=== PATIENT | male | born 1940 | race Caucasian/White ===

== ENCOUNTER 2017-10-31 19:38 | Inpatient (IN) | payer MEDICARE ==
[2017-10-31] MEDS ORDERED: SODIUM CHLORIDE 0.9% 1,000 ML IV STA (20:07)
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
[2017-10-31 20:51] LABS: Basophils % (A) 1 %; Eosinophils # (A) 0.2 k/uL (0-0.7); Eosinophils % (A) 3 %; HCT 38.6 % (39.0-53.0); HGB 13.3 gm/dL (13.0-17.5); Lymphocytes # (A) 2.3 k/uL (1.0-4.8); Lymphocytes % (A) 42 %; MCH 31.7 pg (25.0-35.0); MCHC 34.3 g/dL (31.0-37.0); MCV 92.4 fL (80.0-100.0); Mean Platelet Volume 9.9; Monocytes # (A) 0.4 k/uL (0-1.0); Monocytes % (A) 8 %; Neutrophils # (A) 2.4 k/uL (1.3-7.7); Neutrophils % (A) 44 %; Platelet Count 127 k/uL (150-450); RBC 4.18 m/uL (4.30-5.90); RDW 12.9 % (11.5-15.5); WBC 5.4 k/uL (3.8-10.6)
[2017-10-31 21:02] LABS: Albumin 3.8 g/dL (3.5-5.0); Calcium 10.1 mg/dL (8.4-10.2); Total Bilirubin 0.7 mg/dL (0.2-1.3); Total Protein 6.8 g/dL (6.3-8.2)
[2017-10-31 21:07] LABS: Partial Thromboplastin Time 22.1 sec (22.0-30.0); Prothrombin Time 10.1 sec (9.0-12.0)
[2017-10-31 21:10] LABS: D-Dimer 1.07 mg/L FEU (<0.60)
[2017-10-31 21:16] LABS: Creatine Kinase 75 U/L (55-170)
[2017-10-31 21:18] LABS: T4, Free (Free Thyroxine) 1.27 ng/dL (0.78-2.19)
--- NOTE | 2017-10-31 21:18 | CT ---
EXAMINATION TYPE: CT brain wo con DATE OF EXAM: 10/31/2017 COMPARISON: 01/24/2015 HISTORY: Hypertension and weakness. CT DLP: 1051.4 mGycm Automated exposure control for dose reduction was used. FINDINGS: There is cerebral cortical atrophy. There is no mass effect nor midline shift. There is no sign of in tracranial hemorrhage. The calvarium is intact. IMPRESSION: CEREBRAL ATROPHY. NO ACUTE INTRACRANIAL ABNORMALITY. NO CHANGE.
[2017-10-31 21:30] LABS: Troponin I <0.012 ng/mL (0.000-0.034)
--- NOTE | 2017-10-31 21:41 | XR ---
EXAMINATION TYPE: XR chest 2V DATE OF EXAM: 10/31/2017 COMPARISON: 06/13/2015 HISTORY: Weakness TECHNIQUE: Frontal and lateral views of the chest are obtained. FINDINGS: There is no heart failure nor confluent pneumonic infiltrate. Thoracic aorta is atheromato us. Bony thorax is intact. IMPRESSION: No active cardiopulmonary disease. No change.
[2017-10-31 22:59] LABS: Appearance,Urine Clear (Clear); Bilirubin,Urine Negative (Negative); Blood,Urine Negative (Negative); Color,Urine Light Yellow; Glucose,Urine (UA) Negative (Negative); Ketones,Urine Negative (Negative); Leukocyte Esterase,Urine Negative (Negative); Nitrite,Urine Negative (Negative); Protein,Urine Negative (Negative); Specific Gravity,Urine 1.007 (1.001-1.035); Urobilinogen,Urine <2.0 mg/dL (<2.0)
--- NOTE | 2017-10-31 23:12 | NM ---
EXAMINATION TYPE: NM pul vent and perfuse DATE OF EXAM: 10/31/2017 COMPARISON: NONE HISTORY: TECHNIQUE: Utilizing inhalation of 65.4 mCi Tc 99m DTPA aerosol and intravenous injection of 4.65 mC i of Tc 99m MAA, ventilation and perfusion images are acquired post injection in multiple projections . FINDINGS: There is uniform tracer distribution on the ventilation images. There is normal perfusion images. The re is no segmental type defect. IMPRESSION: Normal exam. There is a very low probability of pulmonary embolism.
[2017-10-31] MEDS ORDERED: NITROGLYCERIN SL TABS 0.4 MG TAB SUBLINGUAL PRN (23:39)
[2017-10-31] MEDS ORDERED: CARVEDILOL 12.5 MG TAB PO STA (23:39)
[2017-10-31] MEDS ORDERED: ASPIRIN 81 MG PO STA (23:39)
[2017-11-01] MEDS: NITROGLYCERIN OINT 1 INCH/GM PACKET TOPICAL SCH ×2 (00:21→06:19)
[2017-11-01] MEDS ORDERED: CARVEDILOL 12.5 MG TAB PO STA (00:46)
[2017-11-01 00:53] VITALS: BMI 24.3
[2017-11-01 01:37] LABS: Cholesterol 99 mg/dL (<200); HDL Cholesterol 36 mg/dL (40-60); LDL Cholesterol,Calculated 46 mg/dL (0-99); Triglycerides 84 mg/dL (<150)
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
[2017-11-01 04:13] LABS: Creatine Kinase 61 U/L (55-170)
[2017-11-01 04:25] LABS: Troponin I <0.012 ng/mL (0.000-0.034)
[2017-11-01] MEDS ORDERED: ASPIRIN 325 MG TAB PO SCH ×2 (09:00)
[2017-11-01] MEDS ORDERED: CARVEDILOL 6.25 MG TAB PO SCH ×2 (09:00→21:00)
[2017-11-01 09:36] LABS: Creatine Kinase 55 U/L (55-170)
[2017-11-01 09:46] LABS: Creatine Kinase MB 0.8 ng/mL (0.0-2.4); Troponin I <0.012 ng/mL (0.000-0.034)
[2017-11-01] MEDS ORDERED: AMINOPHYLLINE 500 MG/20 ML VIAL IV PRN (11:07)
[2017-11-01] MEDS ORDERED: REGADENOSON 0.4 MG/5 ML SYRINGE IV ONE (11:07)
[2017-11-01] MEDS ORDERED: DOBUTamine DRIP for NUC MED 500 MG in DEXTROSE/WATER 1 250ML.BAG IV ONE (11:10)
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
--- NOTE | 2017-11-01 13:02 | ECHOF ---
Referral Reason:Exertional dyspnea MEASUREMENTS -------- HEIGHT: 182.9 cm WEIGHT: 85.3 kg BP: 112/63 IVSd: 0.9 cm (0.6 - 1.1) LVIDd: 3.5 cm (3.9 - 5.3) LVPWd: 1.2 cm (0.6 - 1.1) IVSs: 1.4 cm LVIDs: 1.7 cm LVPWs: 1.3 cm LAESV Index (A-L): 25.21 ml/m Ao Diam: 3.9 cm (2.0 - 3.7) AV Cusp: 1.4 cm (1.5 - 2.6) LA Diam: 2.7 cm (2.7 - 3.8) MV EXCURSION: 11.106 mm (> 18.000) MV EF SLOPE: 42 mm/s (70 - 150) EPSS: 1.0 cm MV E Candido: 0.65 m/s MV DecT: 497 ms MV A Candido: 0.99 m/s MV E/A Ratio: 0.66 AR PHT: 626 ms RAP: 5.00 mmHg RVSP: 19.88 mmHg FINDINGS -------- This was a technically good study. The left ventricular size is normal. There is mild concentric left ventricular hypertrophy. Overa ll left ventricular systolic function is low-normal with, an EF between 50 - 55 %. atypical motion of the septum The right ventricle is normal in size and function. The left atrium is normal in size. The right atrium is normal in size. Aortic valve is trileaflet and is mildly thickened. Trace amount of aortic regurgitation. The mitral valve leaflets are mildly thickened. Mild mitral regurgitation is present. Mild tricuspid regurgitation present. The right ventricular systolic pressure, as measured by Doppl er, is 19.88mmHg. Pulmonic valve appears structurally normal. 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 Normal inferior vena cava with normal inspiratory collapse consistent with estimated right atrial pre ssure of 5 mmHg. The pericardium is normal. CONCLUSIONS -------- 1. This was a technically good study. 2. The left ventricular size is normal. 3. There is mild concentric left ventricular hypertrophy. 4. atypical motion of the septum 5. The right ventricle is normal in size and function. 6. The left atrium is normal in size. 7. The right atrium is normal in size. 8. Aortic valve is trileaflet and is mildly thickened. 9. Trace amount of aortic regurgitation. 10. The mitral valve leaflets are mildly thickened. 11. Mild mitral regurgitation is present. 12. Mild tricuspid regurgitation present. 13. The right ventricular systolic pressure, as measured by Doppler, is 3.9. 14. Pulmonic valve appears structurally normal. 15. The aortic root is dilated measuring 3.9cm. 16. Normal inferior vena cava with normal inspiratory collapse consistent with estimated right atrial pressure of 5 mmHg. 17. The pericardium is normal. RADIATION ENGINEER: Ruth Morales RDCS
--- NOTE | 2017-11-01 15:28 | P.STRESS ---
- Stress Test Note Stress Test Results/Findings: Exam Performed: dobutamine stress echo Exam Date: 11/01/17 Reason for Exam: SOB Height: 6 ft 2 in Weight: 85.275 kg Protocol: DSE Stage: 3 Duration of Exercise: 7:00 Resting Heart Rate: 56 Resting Blood Pressure: 120/60 Maximum Achieved Heart Rate: 52 Maximum Achieved Blood Pressure: 167/73 85% PMHR: 120 100% PMHR: 141 METS: NA Technologist Comment: Stress Test Results/Findings: This is a 77-year-old gentleman was admitted to the hospital with increasing exertional shortness of breath. Patient has history of hypertension. Stress data. Her baseline EKG showed sinus rhythm with evidence of intraventricular conduction delay size to of incomplete left bundle branch pattern. Blood pressure at rest is 120/60 with a heart rate of about 56. A standard dose of dobutamine was initiated and was titrated to 30 mics. Patient developed bradycardia with rates of about 43. The test was abandoned at the time Final impression: #1. Inconclusive debridement stress test because of inadequate heart rate response. #2. Patient did not express any chest pain # 3. Rare PVCs noted"
[2017-11-01] MEDS: HEPARIN SODIUM,PORCINE 5,000 UNIT/ML 1 ML VIAL SQ SCH ×2 (17:34→17:47)
--- NOTE | 2017-11-01 18:12 | P.PN ---
Subjective Progress Note Date: 11/01/17 (delayed charting patient seen at 1430) Principal diagnosis: exertional dyspnea Patient is a 77-year-old male with a history of chronic kidney disease stage IV, hypertension, and polymyalgia rheumatica who presented with exertional dyspnea. Initially in the ER his vital signs were within normal limits. However his blood pressure did escalate to 177/77 several hours after admission. It resolved without any significant intervention. His initial EKG was within normal limits. Initial troponin was negative. He underwent a VQ scan to rule out pulmonary emboli which was low probability. CT of the head shows cerebral atrophy but no acute intracranial abnormality. Chest x-ray showed no acute process. He was placed in observation. Repeat troponins were negative. Cardiology was consulted. He underwent an echocardiogram on the morning of 11/01 which was within normal limits. He attempted a dobutamine stress echo but became bradycardic and the stress test had to be aborted. Patient seen and examined at bedside. He felt lightheaded and sweaty when he got bradycardic. He did not have shortness of breath or chest pain with it. He reports that his symptoms has resolved. He denies any nausea or vomiting. He does have a track template maker he sees in [place] but not one year. He sees Dr. Christina, well in [place]. Objective - Vital Signs Vital signs: Vital Signs Temp 98.4 F 11/01/17 11:54 Pulse 54 L 11/01/17 11:54 Resp 16 11/01/17 11:54 BP 135/66 11/01/17 11:54 Pulse Ox 99 11/01/17 11:54 Intake & Output 10/31/17 11/01/17 11/01/17 18:59 06:59 18:59 Intake Total 222 Balance 222 Weight 85.7 kg 85.275 kg Intake: Oral 222 Other: Voiding Method Toilet - Exam General: non toxic, no distress, appears at stated age Derm: warm, dry Head: atraumatic, normocephalic, symmetric Eyes: EOMI, no lid lag, anicteric sclera Mouth: no lip lesion, mucus membranes moist Cardiovascular: S1S2 reg, no murmur, positive posterior tibial pulse bilateral, Lungs: CTA bilateral, no rhonchi, no rales , no accessory muscle use Abdominal: soft, nontender to palpation, no guarding, no appreciable organomegaly Ext: no gross muscle atrophy, no edema, no contractures Neuro: CN II-XI grossly intact, no focal neuro deficits Psych: Alert, oriented, appropriate affect - Labs CBC & Chem 7: 10/31/17 20:42 10/31/17 20:42 Labs: Abnormal Lab Results - Last 24 Hours (Table) 10/31/17 10/31/17 10/31/17 Range/Units 20:42 20:42 20:42 RBC 4.18 L (4.30-5.90) m/uL Hct 38.6 L (39.0-53.0) % Plt Count 127 L (150-450) k/uL D-Dimer 1.07 H (<0.60) mg/L FEU Chloride 109 H (98-107) mmol/L Carbon Dioxide 20 L (22-30) mmol/L BUN 39 H (9-20) mg/dL Creatinine 1.88 H (0.66-1.25) mg/dL AST 60 H (17-59) U/L Alkaline Phosphatase 153 H (38-126) U/L HDL Cholesterol (40-60) mg/dL 10/31/17 Range/Units 20:42 RBC (4.30-5.90) m/uL Hct (39.0-53.0) % Plt Count (150-450) k/uL D-Dimer (<0.60) mg/L FEU Chloride (98-107) mmol/L Carbon Dioxide (22-30) mmol/L BUN (9-20) mg/dL Creatinine (0.66-1.25) mg/dL AST (17-59) U/L Alkaline Phosphatase (38-126) U/L HDL Cholesterol 36 L (40-60) mg/dL Assessment and Plan Assessment: Exertional dyspnea with concern for angina equivalent -Stress test had to be aborted secondary to symptomatic bradycardia -Plan is for Lexiscan stress test on 11/03 as patient had exposed her to radio nucleotide tracer on 10/31 for VQ scan -Avoiding cardiac catheterization if able with chronic kidney disease stage III with baseline creatinine of 1.88 and GFR of 33 -Cardiology recommendations appreciated - echocardiogram with preserved ejection fraction of 50-55%, mild concentric LVH , and atypical motion of the septum. There is mild valvular disease. -Continue with aspirin and statin Symptomatic bradycardia during stress test -Hold Coreg CKD stage 3/4 -Creatinine appears better than baseline -Avoid additional nephrotoxic agents DVT prophylaxis: Low risk, early ambulation Discussed with: Patient, nursing, cardiology nurse practitioner Anticipated discharge: 2-[address]: Home A total of 25 minutes was spent on the care of this complex patient more than 50 % of the time was spent in counseling and care coordination.
[2017-11-01] MEDS: ATORVASTATIN 10 MG TAB PO SCH (20:21)
[2017-11-01] MEDS: DOCUSATE 100 MG CAP PO SCH (20:54)
[2017-11-02] MEDS: HEPARIN SODIUM,PORCINE 5,000 UNIT/ML 1 ML VIAL SQ SCH ×3 (04:02→15:53)
[2017-11-02] MEDS: DOCUSATE 100 MG CAP PO SCH (09:22)
[2017-11-02] MEDS: ASPIRIN 81 MG PO SCH (09:22)
--- NOTE | 2017-11-02 10:41 | P.PN ---
Subjective Mr. Martinez is seen and examined resting comfortably laying flat in bed. He denies chest pain, shortness of breath, dizziness or palpitations. He states he is feeling better overall slightly but not back to his baseline. Yesterday a dobutamine stress test was attempted. During the dobutamine infusion after approximately 3 minutes he became bradycardic at 40 and was sustaining this rate for over a minute. The dobutamine infusion was stopper and the test was cancelled. Upon further discussion with the patient he states on Monday he did take an additional dose of his coreg around 1700 when his blood pressure was elevated at home. He then received another dose of 12.5 mg around midnight Monday in the ED. Coreg has been discontinued. Telemetry tracings overnight indicate sinus bradycardia rates fluctuate between 50-70. TSH 1.72. Blood pressure 136/75. Due to recent VQ scan he cannot have another nuclear study for 36-48 hours. Echocardiogram obtained revealed preserved LV systolic function with EF 50-55% with atypical walk motion of the septum, mild MR and mild TR. Objective - Vital Signs Vital signs: Vital Signs Temp 98.1 F 11/02/17 07:25 Pulse 56 L 11/02/17 07:25 Resp 18 11/02/17 07:25 BP 136/75 11/02/17 07:25 Pulse Ox 98 11/02/17 07:25 Intake & Output 11/01/17 11/02/17 11/02/17 18:59 06:59 18:59 Intake Total 458 240 Balance 458 240 Weight 85.275 kg Intake: Oral 458 240 Other: Voiding Method Toilet Toilet - Exam GENERAL: Well-appearing, well-nourished and in no acute distress. NECK: Supple without JVD or thyromegaly. LUNGS: Breath sounds clear to auscultation bilaterally. Respiration equal and unlabored. No wheezes, rales or rhonchi. HEART: Regular rate and rhythm without murmurs, rubs or gallops. S1 and S2 heard. EXTREMITIES: Normal range of motion, no edema. No clubbing or cyanosis. Peripheral pulses intact. - Labs CBC & Chem 7: 10/31/17 20:42 10/31/17 20:42 Assessment and Plan Assessment: ASSESSMENT Exertional dyspnea, no evidence of fluid overload on chest x-ray normal and NTproBNP. Hypertension Dyslipidemia Chronic kidney disease, GFR 33 PLAN Discontinue coreg, ongoing telemetry monitoring for acute arrhythmia. Increase activity and ambulation in the victor and assess her ongoing dyspnea with exertion. Perform Lexiscan stress test in the morning to further assess for reversible cardiac ischemia. Nurse Practitioner note has been reviewed, I agree with a documented findings and plan of care. Patient was seen and examined.
[2017-11-02] MEDS: amLODIPine 5 MG TAB PO SCH (15:52)
[2017-11-02] MEDS: ATORVASTATIN 10 MG TAB PO SCH (19:54)
--- NOTE | 2017-11-02 20:48 | P.PN ---
Subjective Progress Note Date: 11/02/17 (delayed charting patient seen at 1200) Principal diagnosis: exertional dyspnea Patient is a 77-year-old male with a history of chronic kidney disease stage IV, hypertension, and polymyalgia rheumatica who presented with exertional dyspnea. Initially in the ER his vital signs were within normal limits. However his blood pressure did escalate to 177/77 several hours after admission. It resolved without any significant intervention. His initial EKG was within normal limits. Initial troponin was negative. He underwent a VQ scan to rule out pulmonary emboli which was low probability. CT of the head shows cerebral atrophy but no acute intracranial abnormality. Chest x-ray showed no acute process. He was placed in observation. Repeat troponins were negative. Cardiology was consulted. He underwent an echocardiogram on the morning of 11/01 which was within normal limits. He attempted a dobutamine stress echo but became bradycardic and the stress test had to be aborted. Plan is for lexiscan in AM Patient seen and examined at bedside. Still feeling slightly "off". Feeling better than yesterday. No further chest pain, shortness of breath, or dizziness. Son is a family physician and would like to be contacted with results of Lexiscan and. I did leave them my card so I could speak with him tomorrow. Objective - Vital Signs Vital signs: Vital Signs Temp 97.7 F 11/02/17 19:15 Pulse 66 11/02/17 19:15 Resp 16 11/02/17 19:15 BP 119/60 11/02/17 19:15 Pulse Ox 97 11/02/17 19:15 Intake & Output 11/02/17 11/02/17 11/03/17 06:59 18:59 06:59 Intake Total 240 844 Balance 240 844 Intake: Oral 240 844 Other: Voiding Method Toilet Toilet - Exam General: non toxic, no distress, appears at stated age Derm: warm, dry Head: atraumatic, normocephalic, symmetric Cardiovascular: S1S2 reg, no murmur, positive posterior tibial pulse bilateral, Lungs: CTA bilateral, no rhonchi, no rales , no accessory muscle use Abdominal: soft, nontender to palpation, no guarding, no appreciable organomegaly Ext: no gross muscle atrophy, no edema, no contractures Neuro: CN II-XI grossly intact, no focal neuro deficits Psych: Alert, oriented, appropriate affect - Labs CBC & Chem 7: 10/31/17 20:42 10/31/17 20:42 Assessment and Plan Assessment: Exertional dyspnea with concern for angina equivalent -Stress test had to be aborted secondary to symptomatic bradycardia -Plan is for Lexiscan stress test on 11/03 as patient had exposure to radio nucleotide tracer on 10/31 for VQ scan -Avoiding cardiac catheterization if able with chronic kidney disease stage IV with baseline creatinine of 1.88 and GFR of 33 -Cardiology recommendations appreciated - echocardiogram with preserved ejection fraction of 50-55%, mild concentric LVH , and atypical motion of the septum. There is mild valvular disease. -Continue with aspirin and statin Symptomatic bradycardia during stress test -Hold Coreg CKD stage 3/4 -Creatinine appears better than baseline -Avoid additional nephrotoxic agents DVT prophylaxis: Low risk, early ambulation Discussed with: Patient, nursing, cardiology nurse practitioner Anticipated discharge: 1-[address]: Home A total of 25 minutes was spent on the care of this complex patient more than 50 % of the time was spent in counseling and care coordination.
[2017-11-03] MEDS: HEPARIN SODIUM,PORCINE 5,000 UNIT/ML 1 ML VIAL SQ SCH ×3 (00:34→17:43)
[2017-11-03] MEDS ORDERED: AMINOPHYLLINE 500 MG/20 ML VIAL IV PRN (06:00)
[2017-11-03 07:43] LABS: Calcium 9.2 mg/dL (8.4-10.2); Potassium 4.5 mmol/L (3.5-5.1)
[2017-11-03 07:47] VITALS: RESP 18
[2017-11-03] MEDS ORDERED: REGADENOSON 0.4 MG/5 ML SYRINGE IV ONE (08:00)
[2017-11-03] MEDS ORDERED: AMINOPHYLLINE 250 MG/10 ML VIAL IV ONE (09:51)
[2017-11-03] MEDS: ASPIRIN 81 MG PO SCH (10:45)
[2017-11-03] MEDS: DOCUSATE 100 MG CAP PO SCH (10:45)
[2017-11-03] MEDS: amLODIPine 5 MG TAB PO SCH (10:45)
--- NOTE | 2017-11-03 10:49 | NM ---
EXAMINATION TYPE: NM stress lexiscan cardiolite DATE OF EXAM: 11/03/2017 COMPARISON: NONE HISTORY: Recording of chest pain and abnormal EKG TECHNIQUE: After the intravenous administration of 10.84 mCi Tc 99m Sestamibi - Cardiolite resting S PECT images acquired 45 minutes post injection. The patient received 0.4mg Lexiscan, 24.4 mCi Tc 99m Sestamibi - Stress images obtained [address] injection FINDINGS: Review of stress and rest SPECT images demonstrates fixed defect inferior wall and cardiac apex ankit tible with remote insult. There is an area of the decreased perfusion on stress images involving the cardiac septum which may reflect stress-induced ischemia. Correlate clinically. Estimated ejection fr action is 50%. IMPRESSION: I cannot exclude stress-induced ischemia involving the cardiac septum. Areas of remote insult as note d.
--- NOTE | 2017-11-03 11:04 | P.STRESS ---
- Stress Test Note Stress Test Results/Findings: Exam Performed: NM stress lexiscan cardiolite Exam Date: 11/03/17 Reason for Exam: SOB Height: 6 ft 2 in Weight: 85.275 kg Protocol: JAIRO Stage: na Duration of Exercise: na Resting Heart Rate: 61 Resting Blood Pressure: 139/72 Maximum Achieved Heart Rate: 98 Maximum Achieved Blood Pressure: 149/76 85% PMHR: 120 100% PMHR: 141 METS: NA Technologist Comment: Stress Test Results/Findings: This is a 77-year-old gentleman who was admitted to the hospital with increasing shortness of breath. Patient has history of hypertension, hypercholesterolemia and family history of ischemic heart disease. Stress data: Baseline EKG showed a sinus rhythm with incomplete left bundle- branch block pattern. Blood pressure at rest is 130/72 with pulse rate of 61. A standard dose of Lexiscan was infused. EKGs taken during and after the infusion did not reveal significant changes from the baseline. Occasional PVCs were noted. Patient developed was a feeling after the infusion which gradually improved after giving aminophylline and caffeine. Final impression: #1 . Negative Lexiscan stress test #2. Report on the nuclear images to be given by the radiologist
[2017-11-03 15:49] VITALS: BP 112/66; PULSE 73; TEMP 97.5
--- NOTE | 2017-11-03 20:39 | P.DS ---
Providers Date of admission: 10/31/17 23:39 Expected date of discharge: 11/03/17 Attending physician: Girish Karimi MD Consults: 10/31/17 23:39 Consult Physician Urgent Consulting Provider: Rizwan Marie Consult Reason/Comments: Exertional dyspnea Do you want consulting provider notified?: Yes Primary care physician: Jeffy [place] Hospital Course: Discharge Diagnosis: Exertional dyspnea, resolved Bradycardia Hypertension with hypertensive urgency Dyslipidemia Chronic kidney disease stage 3/4 Hospital Course: Patient is a 77-year-old male with a history of chronic kidney disease stage IV, hypertension, and polymyalgia rheumatica who presented with exertional dyspnea. Initially in the ER his vital signs were within normal limits. However his blood pressure did escalate to 177/77 several hours after admission. It resolved without any significant intervention. His initial EKG was within normal limits. Initial troponin was negative. He underwent a VQ scan to rule out pulmonary emboli which was low probability. CT of the head shows cerebral atrophy but no acute intracranial abnormality. Chest x-ray showed no acute process. He was placed in observation. Repeat troponins were negative. Cardiology was consulted. He underwent an echocardiogram on the morning of 11/01 which was within normal limits. He attempted a dobutamine stress echo but became bradycardic and the stress test had to be aborted. Patient had taken procedure additional dose of Coreg morning prior to his stress test. His Coreg was subsequently discontinued due to bradycardia during stress testing. Due to his VQ scan is unable to have the nuclear study for 36- 48 hours. He underwent a nuclear stress test on 11/03 which stated it could not exclude stress-induced ischemia involving the cardiac septum. This was discussed with cardiology. Cardiology felt that this was not a significant blockages. Genitalia the patient stable for discharge home. Patient was subsequently discharged. He was given a prescription for NorCylance to take him move his Coreg. This has been working on the hospital. He was also given instructions to check his blood pressure once daily and alert Dr. Macdonald if it remains greater than 160. He will follow-up with Dr. Macdonald in one week. He will also follow-up with Dr. Christina in 1-2 days. I did ask patient to return to medical attention if he should have recurrent chest pain, exertional dyspnea, palpitation, or other concerning symptoms. We did discuss that no stress test was 100% accurate and he still should seek medical attention if he has chest pain. I also informed the patient's son of stress test results. Patient seen and examined at bedside. No chest pain, shortness of breath, nausea, or vomiting. Walking the hallways for 20 minutes without difficulty. Vital signs reviewed and stable. General: non toxic, no distress, appears at stated age Derm: warm, dry Head: atraumatic, normocephalic, symmetric Eyes: EOMI, no lid lag, anicteric sclera Mouth: no lip lesion, mucus membranes moist Cardiovascular: S1S2 reg, no murmur, positive posterior tibial pulse bilateral, Lungs: CTA bilateral, no rhonchi, no rales , no accessory muscle use Abdominal: soft, nontender to palpation, no guarding, no appreciable organomegaly Ext: no gross muscle atrophy, no edema, no contractures Neuro: CN II-XI grossly intact, no focal neuro deficits Psych: Alert, oriented, appropriate affect A total of 25 minutes of time were spent preparing this complex discharge summary . Pertinent Studies: Lexiscan stress test-and unable to exclude reversible ischemia in the septum Dobutamine stress test-inconclusive secondary to inadequate heart rate response Echocardiogram-ejection fraction 50-55% CT head-cerebral atrophy, no acute process VQ scan- very low probability of pulmonary emboli Patient Condition at Discharge: Stable Plan - Discharge Summary New Discharge Prescriptions: New amLODIPine [Norvasc] 5 mg PO DAILY #30 tab Continue Rosuvastatin Calcium [Crestor] 5 mg PO HS Glucosam/Gómez-Msm1/C/Casey/Bosw [Glucosamine-Chondroitin Tablet] 1 tab PO DAILY Cholecalciferol [Vitamin D3] 1,000 unit PO DAILY Scotty/D3/Mag11/Zinc/Post Splitter/Casey/Bor [Caltrate 600+D Plus Tablet] 1 tab PO DAILY Aspirin EC [Ecotrin Low Dose] 81 mg PO DAILY Discontinued Carvedilol [Coreg] 6.25 mg PO QAM Carvedilol [Coreg] 12.5 mg PO HS Discharge Medication List Aspirin EC [Ecotrin Low Dose] 81 mg PO DAILY 10/31/17 [History] Scotty/D3/Mag11/Zinc/Post Splitter/Casey/Bor [Caltrate 600+D Plus Tablet] 1 tab PO DAILY 10/31 [History] Cholecalciferol [Vitamin D3] 1,000 unit PO DAILY 10/31/17 [History] Glucosam/Gómez-Msm1/C/Casey/Bosw [Glucosamine-Chondroitin Tablet] 1 tab PO DAILY 10/31/17 [History] Rosuvastatin Calcium [Crestor] 5 mg PO HS 10/31/17 [History] amLODIPine [Norvasc] 5 mg PO DAILY #30 tab 11/03/17 [Rx] Follow up Appointment(s)/Referral(s): Juan Manuel Macdonald MD [STAFF PHYSICIAN] - 1 Week (Office will call you for appointment next week.) Jeffy Christina MD [Primary Care Provider] - 1-2 days Patient Instructions/Handouts: Chest Pain (ED) Activity/Diet/Wound Care/Special Instructions: Heart healthy diet Activity as tolerated Monitor blood pressures at home if top number is greater than [address] Macdonald's office for further instructions. Discharge Disposition: HOME SELF-CARE
== END 2017-11-03 18:20 | disposition home or self-care (01) | DRG 204 ==
LOC: EC 19:38 → 3OBS 23:39 → OBSVTOIN 11-03 16:15
PROVIDERS: ADMIT Internal Medicine; ATTEND Internal Medicine
DX: R06.09 Other forms of dyspnea (principal); N18.4 Chronic kidney disease, stage 4 (severe); I16.0 Hypertensive urgency; I12.9 Hypertensive chronic kidney disease with stage 1 through stage 4 chronic kidney disease, or unspecified chronic kidney disease; R00.1 Bradycardia, unspecified; M35.3 Polymyalgia rheumatica; D69.6 Thrombocytopenia, unspecified; E78.5 Hyperlipidemia, unspecified; Z88.5 Allergy status to narcotic agent; Z79.82 Long term (current) use of aspirin; Z79.899 Other long term (current) drug therapy; Z82.0 Family history of epilepsy and other diseases of the nervous system
CPT/HCPCS: 36415; 70450; 71046; 78452; 78582; 80048; 80053; 80061; 81003; 82550; 82553; 83605; 83735; 83880; 84439; 84443; 84481; 84484; 85025; 85379; 85610; 85730; 93005; 93017; 93306; 93351; 96360; 96361; 99285

== ENCOUNTER → 2017-12-05 | Outpatient (CLI) | payer MEDICARE ==
--- NOTE | 2017-12-05 11:05 | US ---
EXAMINATION TYPE: US kidneys/renal and bladder DATE OF EXAM: 12/05/2017 COMPARISON: CT 2014 CLINICAL HISTORY: N18.3 CKD Stage 3. EXAM MEASUREMENTS: Right Kidney: 8.9x 5.1x3.8 cm Left Kidney: 8.6 x 4.2 x 5.1 cm Post Void Residual Volume: 15.7 mL Right Kidney: multiple cysts. 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 Bladder: wnl Bilateral Jets seen: Yes Normal Post Void Residual: Yes enlarged prostate There is no evidence for hydronephrosis at this point in time. No nephrolithiasis is seen. There is bilateral cortical renal thinning. The urinary bladder is anechoic. Bilateral ureteral jets are see n. IMPRESSION: 1. Medical renal disease with multiple renal cysts 2. 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 3. Incidentally noted enlarged prostate.
== END | disposition home or self-care (01) ==
LOC: RADUSWWP 09:25
PROVIDERS: ATTEND Internal Medicine
DX: N28.1 Cyst of kidney, acquired (principal); D73.89 Other diseases of spleen; N40.0 Benign prostatic hyperplasia without lower urinary tract symptoms; N18.3 Chronic kidney disease, stage 3 (moderate)
CPT/HCPCS: 76770

== ENCOUNTER 2020-02-18 07:29 | Inpatient (IN) | payer MEDICARE ==
[2020-02-18] MEDS ORDERED: MORPHINE SULFATE 4 MG/ML SYRINGE IVP STA (08:07)
[2020-02-18] MEDS ORDERED: ONDANSETRON 4 MG/2 ML VIAL IVP STA (08:07)
[2020-02-18 08:28] LABS: Basophils % (A) 1 %; Eosinophils # (A) 0.1 k/uL (0-0.7); Eosinophils % (A) 3 %; HCT 39.7 % (39.0-53.0); HGB 13.3 gm/dL (13.0-17.5); Lymphocytes # (A) 1.2 k/uL (1.0-4.8); Lymphocytes % (A) 27 %; MCH 31.6 pg (25.0-35.0); MCHC 33.4 g/dL (31.0-37.0); MCV 94.7 fL (80.0-100.0); Mean Platelet Volume 10.3; Monocytes # (A) 0.3 k/uL (0-1.0); Monocytes % (A) 6 %; Neutrophils # (A) 2.7 k/uL (1.3-7.7); Neutrophils % (A) 61 %; Platelet Count 120 k/uL (150-450); RBC 4.19 m/uL (4.30-5.90); RDW 13.1 % (11.5-15.5); WBC 4.4 k/uL (3.8-10.6)
[2020-02-18 08:38] LABS: Albumin 3.9 g/dL (3.5-5.0); Calcium 9.6 mg/dL (8.4-10.2); Potassium 4.7 mmol/L (3.5-5.1); Total Bilirubin 0.7 mg/dL (0.2-1.3)
[2020-02-18 08:41] LABS: INR 0.9 (<1.2)
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
[2020-02-18 09:04] LABS: D-Dimer 0.94 mg/L FEU (<0.60); Partial Thromboplastin Time 21.6 sec (22.0-30.0)
--- NOTE | 2020-02-18 09:07 | XR ---
EXAMINATION TYPE: XR chest 2V DATE OF EXAM: 02/18/2020 COMPARISON: 10/31/2017 INDICATION: Left shoulder pain TECHNIQUE: Frontal and lateral views of the chest are obtained. FINDINGS: The heart size is normal. The pulmonary vasculature is normal. The lungs are clear. No significant interval change IMPRESSION: 1. No acute pulmonary process.
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
--- NOTE | 2020-02-18 09:15 | CT ---
EXAMINATION TYPE: CT cervical spine wo con DATE OF EXAM: 02/18/2020 COMPARISON: 01/24/2015 HISTORY: 79-year-old male cervicalgia, pain down the left arm and neck TECHNIQUE: Contiguous axial scanning of the cervical spine without IV contrast. Coronal and sagittal reconstructions performed. CT DLP: 489.6 mGycm Automated exposure control for dose reduction was used. FINDINGS: No craniocervical junction abnormality, predental space widening, or prevertebral soft tissue swellin g. Advanced hypertrophic facet arthropathy especially upper and mid cervical spine and hypertrophic and uncovertebral joint arthropathy mid and lower cervical spine. Reversal of the normal cervical lordosis along the lower cervical spine. Stable grade 1 anterolisthesis at C4-C5. Mild to moderate degenerative disc disease scattered throughout. Small disc osteophyte complexes are present. These result in minimal narrowing of the spinal canal such as that C4-C5 and C5-C6. No acute fracture of the cervical spine. At C2-C3, moderate right neuroforaminal stenosis. At C3-C4, moderate bilateral neuroforaminal stenosis. At C4-C5, moderate left neural foraminal stenosis. At C5-C6, mild to moderate right neuroforaminal stenosis. At C6-C7, mild left neuroforaminal stenosis. IMPRESSION: SIMILAR MODERATE MULTILEVEL SPONDYLOTIC CHANGE. REVERSAL OF NORMAL CERVICAL LORDOSIS ALONG THE LOWER CERVICAL SPINE AND AN UNCHANGED GRADE 1 ANTEROLISTHESIS AT C4-C5. MILD NARROWING OF THE SPINAL CANAL AT C4-C5 AND C5-C6 AND VARIABLE MODERATE NEURAL FORAMINAL STENOSES OUTLINED ABOVE.
[2020-02-18] MEDS ORDERED: NALOXONE 0.4 MG/ML 1 ML VIAL IV PRN (10:35)
[2020-02-18] MEDS ORDERED: ASPIRIN 325 MG TAB PO STA (10:35)
[2020-02-18] MEDS ORDERED: HEPARIN SODIUM,PORCINE 5,000 UNIT/ML 1 ML VIAL IV PRN (13:08)
[2020-02-18] MEDS ORDERED: HEPARIN SODIUM,PORCINE 5,000 UNIT/ML 1 ML VIAL IV ONE (13:08)
[2020-02-18] MEDS ORDERED: HEPARIN SOD,PORK IN 0.45% NACL 25,000 UNIT in 0.45% NACL 1 250ML.BAG IV SCH (13:15)
[2020-02-18] MEDS ORDERED: amLODIPine 5 MG TAB PO STA (13:42)
[2020-02-18] MEDS: NON FORMULARY DRUG (Omega-3 Fatty Acids/Fish Oil [Fish Oil 1,000 Mg Softgel] 1 EACH Capsul PO SCH (13:53)
[2020-02-18] MEDS: NITROGLYCERIN OINT 1 INCH/GM PACKET TOPICAL SCH ×2 (14:03→22:58)
[2020-02-18 14:17] LABS: Basophils % (A) 1 %; Eosinophils # (A) 0.2 k/uL (0-0.7); Eosinophils % (A) 4 %; HCT 40.2 % (39.0-53.0); HGB 13.6 gm/dL (13.0-17.5); Lymphocytes # (A) 1.7 k/uL (1.0-4.8); Lymphocytes % (A) 30 %; MCH 32.4 pg (25.0-35.0); MCHC 33.7 g/dL (31.0-37.0); MCV 96.1 fL (80.0-100.0); Monocytes # (A) 0.4 k/uL (0-1.0); Monocytes % (A) 7 %; Neutrophils # (A) 3.2 k/uL (1.3-7.7); Neutrophils % (A) 58 %; Platelet Count 124 k/uL (150-450); RBC 4.18 m/uL (4.30-5.90); RDW 13.2 % (11.5-15.5); WBC 5.6 k/uL (3.8-10.6)
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
[2020-02-18 14:44] LABS: INR 0.9 (<1.2); Prothrombin Time 10.2 sec (9.0-12.0)
[2020-02-18 14:46] LABS: Partial Thromboplastin Time 21.7 sec (22.0-30.0)
[2020-02-18] MEDS ORDERED: ALPRAZolam 0.5 MG TAB PO PRN (15:19)
[2020-02-18] MEDS ORDERED: ALPRAZolam 0.25 MG TAB PO PRN (15:19)
[2020-02-18] MEDS ORDERED: NITROGLYCERIN SL TABS 0.4 MG TAB SUBLINGUAL PRN (15:19)
--- NOTE | 2020-02-18 16:14 | NM ---
EXAMINATION TYPE: NM pul vent and perfuse DATE OF EXAM: 02/18/2020 COMPARISON: Radiograph same day HISTORY: 79-year-old male elevated d-dimer, shortness of breath TECHNIQUE: Utilizing inhalation of 38.0 mCi Tc 99m DTPA aerosol and intravenous injection of 5.2 mCi of Tc 99m MAA, ventilation and perfusion images are acquired post injection in multiple projections. FINDINGS: Normal radiotracer distribution is noted in the lungs. No mismatch perfusion defects. Some minimal cl umping of inhaled tracer in the central airways may be seen with COPD. IMPRESSION: Very low probability for pulmonary embolus.
[2020-02-18] MEDS: hydrALAZINE HCL 25 MG TAB PO SCH ×2 (16:29→20:55)
--- NOTE | 2020-02-18 18:00 | ECHOF ---
Referral Reason:LV function, chest pain MEASUREMENTS -------- HEIGHT: 182.9 cm WEIGHT: 86.2 kg BP: RVIDd: 2.9 cm (< 3.3) IVSd: 0.8 cm (0.6 - 1.1) LVIDd: 4.3 cm (3.9 - 5.3) LVPWd: 1.5 cm (0.6 - 1.1) IVSs: 1.3 cm LVIDs: 4.3 cm LVPWs: 1.3 cm LA Diam: 4.0 cm (2.7 - 3.8) LAESV Index (A-L): 27.10 ml/m Ao Diam: 3.6 cm (2.0 - 3.7) AV Cusp: 1.2 cm (1.5 - 2.6) MV EXCURSION: 12.842 mm (> 18.000) MV EF SLOPE: 34 mm/s (70 - 150) EPSS: 4.8 cm MV E Candido: 0.35 m/s MV DecT: 229 ms MV A Candido: 0.81 m/s MV E/A Ratio: 0.43 AR PHT: 808 ms RAP: 5.00 mmHg RVSP: 30.81 mmHg FINDINGS -------- Sinus rhythm. This was a technically good study. The left ventricular size is normal. Left ventricular wall thickness is normal. There is severe g lobal hypokinesis of LV . Overall left ventricular systolic function is severely impaired with, an EF between 20 - 25 %. Mid lateral LV wall motion is hypokinetic. Mid posterior LV wall motion is hypokinetic. Mid inferoseptal LV wall motion is hypokinetic. Mid anteroseptal LV wall motion i s hypokinetic. Apical anterior LV wall motion is hypokinetic. Apical lateral LV wall motion is hypokinetic. Apical inferior LV wall motion is hypokinetic. Apical septum LV wall motion is hyp okinetic. Normal LA size by volume 22+/-6 ml/m2. There is mild aortic valve sclerosis. There is mild aortic regurgitation. Mild mitral regurgitation is present. Mild tricuspid regurgitation present. Right ventricular systolic pressure is normal at < 35 mmHg. Trace/mild (physiologic) pulmonic regurgitation. The aortic root size is normal. There is no pericardial effusion. CONCLUSIONS -------- 1. The left ventricular size is normal. 2. Left ventricular wall thickness is normal. 3. There is severe global hypokinesis of LV . 4. Overall left ventricular systolic function is severely impaired with, an EF between 20 - 25 %. 5. Mid lateral LV wall motion is hypokinetic. 6. Mid posterior LV wall motion is hypokinetic. 7. Mid inferoseptal LV wall motion is hypokinetic. 8. Mid anteroseptal LV wall motion is hypokinetic. 9. Apical anterior LV wall motion is hypokinetic. 10. Apical lateral LV wall motion is hypokinetic. 11. Apical inferior LV wall motion is hypokinetic. 12. Apical septum LV wall motion is hypokinetic. 13. Normal LA size by volume 22+/-6 ml/m2. 14. There is mild aortic valve sclerosis. 15. There is mild aortic regurgitation. 16. Mild mitral regurgitation is present. 17. Mild tricuspid regurgitation present. 18. Right ventricular systolic pressure is normal at < 35 mmHg. 19. Trace/mild (physiologic) pulmonic regurgitation. 20. The aortic root size is normal. 21. There is no pericardial effusion. METAL BUILDINGS ASSEMBLER: Lalita Duff RDCS
--- NOTE | 2020-02-18 18:24 | HP ---
HISTORY AND PHYSICAL This is an 79-year-old with past medical history of hypertension, dyslipidemia, chronic kidney disease with left arm pain. Pain was the worst pain he has ever had. It radiated right to his back and his left shoulder and left arm, also radiating to his jaw, neck and back. Mildly short of breath. Denies lightheadedness or dizziness. He had a stress test in 2018 that was inconclusive. He underwent heart catheterization in 2019, he says, and did not require stenting. He is scheduled for heart catheterization tomorrow morning. Chest x-ray is normal. D-dimer is positive with a V/Q scan negative low probability. EKG shows sinus rhythm, no ischemia. Labs were reviewed. REVIEW OF SYSTEMS: Fourteen-point review of systems otherwise negative. PHYSICAL EXAMINATION: Vital signs stable. Afebrile. CARDIOVASCULAR: S1, S2. LUNGS: Clear. GI: Soft. HEMATOLOGY: Negative Homans. PSYCH: Fair mood and affect. NEUROLOGIC: Alert and oriented x3. ASSESSMENT: 1. Possible xcy-GD-gyzttcd-elevation myocardial infarction. 2. Elevated D-dimer. PE is ruled out. 3. Hypertension. 4. Dyslipidemia. 5. Chronic kidney disease. Echo. Increase his Norvasc to 10 mg daily. Nitroglycerin patch. Trend troponins. N.p.o. Cardiac cath in the morning prior to discharge. MMODL / IJN: [id number] /
[2020-02-18] MEDS ORDERED: SODIUM CHLORIDE 0.9% 1,000 ML in EMPTY BAG 1 BAG IV ONE (19:00)
[2020-02-18] MEDS: ATORVASTATIN 10 MG TAB PO SCH (20:55)
[2020-02-18] MEDS: carvediloL 12.5 MG TAB PO SCH (20:55)
[2020-02-19] MEDS: SODIUM CHLORIDE 0.9% 1,000 ML IV SCH ×4 (04:11→23:57)
[2020-02-19] MEDS: hydrALAZINE HCL 25 MG TAB PO SCH ×3 (05:38→20:54)
[2020-02-19] MEDS: carvediloL 12.5 MG TAB PO SCH ×2 (05:38→20:54)
[2020-02-19] MEDS: MAGNESIUM OXIDE 400 MG TAB PO SCH (05:38)
[2020-02-19] MEDS: amLODIPine 10 MG TAB PO SCH (05:39)
[2020-02-19] MEDS ORDERED: ATORVASTATIN 80 MG TAB PO ONE (06:00)
[2020-02-19] MEDS ORDERED: ASPIRIN 325 MG TAB PO ONE (06:00)
[2020-02-19] MEDS ORDERED: HEPARIN SODIUM,PORCINE 2,500 UNIT in SODIUM CHLORIDE 0.9% 250 ML IRRIGATION PRN (07:00)
[2020-02-19] MEDS ORDERED: HEPARIN SODIUM,PORCINE 10,000 UNIT in SODIUM CHLORIDE 0.9% 1,000 ML IRRIGATION PRN (07:00)
[2020-02-19 08:26] LABS: Basophils % (A) 0 %; Eosinophils # (A) 0.1 k/uL (0-0.7); Eosinophils % (A) 2 %; HCT 40.9 % (39.0-53.0); HGB 13.5 gm/dL (13.0-17.5); Lymphocytes # (A) 1.4 k/uL (1.0-4.8); Lymphocytes % (A) 23 %; MCH 31.7 pg (25.0-35.0); Mean Platelet Volume 10.4; Monocytes # (A) 0.4 k/uL (0-1.0); Monocytes % (A) 6 %; Neutrophils # (A) 4.1 k/uL (1.3-7.7); Neutrophils % (A) 67 %; Platelet Count 129 k/uL (150-450); RBC 4.27 m/uL (4.30-5.90); RDW 13.3 % (11.5-15.5); WBC 6.2 k/uL (3.8-10.6)
[2020-02-19 08:49] LABS: Calcium 9.4 mg/dL (8.4-10.2); Potassium 4.9 mmol/L (3.5-5.1)
[2020-02-19] MEDS ORDERED: amLODIPine 5 MG TAB PO SCH (09:00)
[2020-02-19] MEDS ORDERED: fentaNYL (PF) 50 MCG/ML 2 ML AMP ONE (10:14)
[2020-02-19] MEDS ORDERED: LIDOCAINE 1% INJ 10MG/ML (20 ML MDV) ONE (10:14)
[2020-02-19] MEDS ORDERED: IV FLUID CONTINUATION 250 ML IV ONE (10:23)
[2020-02-19] MEDS ORDERED: MIDAZOLAM 2 MG/2 ML VIAL IV ONE (10:40)
[2020-02-19] MEDS ORDERED: fentaNYL (PF) 50 MCG/ML 2 ML AMP IV ONE (10:40)
[2020-02-19] MEDS ORDERED: LIDOCAINE 1% INJ 10MG/ML (20 ML MDV) SQ ONE (10:43)
[2020-02-19] MEDS ORDERED: IOPAMIDOL-370 100ML BTL INJ ONE (10:56)
[2020-02-19] MEDS ORDERED: RX INFO: IV CONTRAST WAS GIVEN 1 EACH MISC MISCELLANE PRN (11:03)
--- NOTE | 2020-02-19 11:49 | CC ---
CARDIAC CATHETERIZATION REPORT INDICATION: Acute non ST-segment elevation [place]. This is an 79-year-old gentleman with history of mild to moderate coronary artery disease on medical therapy, who presented to hospital with symptoms of new onset chest and left arm pain and ruled in for myocardial infarction. He had extensive apical hypokinesis with LV systolic dysfunction that is new compared to his prior testing. The patient has renal insufficiency. I advised him to undergo cardiac catheterization to rule out significant progression of CAD. He was explained of risks, benefits and alternatives, especially the risk of contrast induced nephropathy. The patient was also seen by a field service manager. PROCEDURE NOTE: After obtaining informed consent, left heart catheterization and coronary angiogram were performed via the right femoral artery using standard Gabrielle catheters. The patient tolerated the procedure well without any obvious immediate complications. A femoral angiogram was performed and decision was made for manual hemostasis. Patient received moderate conscious sedation. Total sedation time was 15 minutes. FINDINGS: 1. HEMODYNAMICS: Left ventricular end-diastolic pressure is 9 mm. There is no significant gradient across the aortic valve. 2. LEFT VENTRICULOGRAM: Left ventriculogram is not performed. 3. ANGIOGRAPHIC DATA: Left Main Coronary Artery: Left main coronary artery appears calcified but is free of stenosis. Divides into left anterior descending coronary artery, ramus intermedius and circumflex coronary artery. His LAD is heavily calcified and there are focal areas of 40% to 50% stenosis involving mid and distal LAD. The LAD wraps around the apex of the heart. Circumflex coronary artery and ramus are free of focal stenotic lesions, but are calcified and have atherosclerotic plaque. Right coronary artery is a large dominant vessel that shows mild to moderate nonobstructive disease. CONCLUSIONS: Heavily calcified vessels. Moderate nonobstructive disease involving mid to distal left anterior descending artery, which is very similar to the previous cardiac catheterization data. PLAN: The patient's LV systolic dysfunction and elevated troponin could be due to Takotsubo syndrome. He will be treated with optimal medical therapy. I am going to gently hydrate him and hopefully discharge him home tomorrow. Continue with the beta blockers, statins, aspirin and nitrates that he is currently on. He will follow up with Dr. Ariadne Macdonald, his primary braille transcriber, upon discharge. MMODL / IJN: [id number] /
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
[2020-02-19] MEDS: NON FORMULARY DRUG (Cal/D3/Mag11/Zinc/Cop/Mang/Bor [Caltrate 600+D Plus Tablet] 1 EACH Tab PO SCH (17:28)
[2020-02-19] MEDS: NON FORMULARY DRUG (Glucosam/Chon-Msm1/C/Mang/Bosw [Glucosamine-Chondroitin Tablet] 1 EACH PO SCH (17:28)
[2020-02-19] MEDS: NITROGLYCERIN OINT 1 INCH/GM PACKET TOPICAL SCH ×3 (17:28→23:55)
[2020-02-19] MEDS: TIMOLOL 0.5% OPHTH DROPS 5 ML BTL BOTH EYES SCH (18:03)
[2020-02-19] MEDS: CHOLECALCIFEROL 1,000 UNIT TAB PO SCH (18:18)
--- NOTE | 2020-02-19 20:12 | PN ---
PROGRESS NOTE This 79-year-old white male was found to have takotsubo syndrome with ejection fraction 20% to 25%, chronic calcified coronary arteries, 40% to 50% blocked LAD severe chest pain radiating to his back. Will order a CT scan of his lungs to make sure we are not missing anything with elevated D-dimer. Will treat him with medicines for systolic CHF. Monitor him as an outpatient. Home tomorrow. CARDIOVASCULAR: S1, S2. LUNGS: Clear. PSYCH: Fair mood and affect. HEMATOLOGY: Negative Homans. ASSESSMENT: 1. Atypical chest pain. 2. Takotsubo syndrome. 3. Systolic congestive heart failure. 4. Chronic coronary artery disease, medically treated. Home tomorrow after CT scan. Monitor him as outpatient with echo. MMODL / IJN: [id number] /
[2020-02-19] MEDS: ATORVASTATIN 10 MG TAB PO SCH (20:54)
--- NOTE | 2020-02-19 21:25 | CT ---
EXAMINATION TYPE: CT chest wo con DATE OF EXAM: 02/19/2020 COMPARISON: 01/24/2015 HISTORY: Chest pain. CT DLP: 362.9 mGycm Automated exposure control for dose reduction was used. Images obtained from the thoracic inlet to the diaphragm without contrast. There is some linear density at the lung bases consistent with scarring and atelectasis. There is no pleural effusion. Heart size is fairly normal. There is no pericardial effusion. There are no hilar m asses. There is no mediastinal adenopathy. Thoracic aorta is atheromatous. 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 There is coronary artery calcification. There is spurring in the thoracic spine. I see no focal bone destruction. Sternum is intact. IMPRESSION: There is mild aneurysm of the ascending aorta increased 2 mm compared to old exam. Atherosclerotic vascular disease. Minimal scarring and subsegmental atelectasis at the lung bases unc hanged. No suspicious pulmonary mass.
[2020-02-19 22:35] LABS: Appearance,Urine Clear (Clear); Bilirubin,Urine Negative (Negative); Blood,Urine Negative (Negative); Color,Urine Light Yellow; Glucose,Urine (UA) Negative (Negative); Ketones,Urine Negative (Negative); Leukocyte Esterase,Urine Negative (Negative); Nitrite,Urine Negative (Negative); PH, Urine 5.5 (5.0-8.0); Protein,Urine Negative (Negative); Specific Gravity,Urine 1.015 (1.001-1.035); Urobilinogen,Urine <2.0 mg/dL (<2.0)
[2020-02-20] MEDS: SODIUM CHLORIDE 0.9% 1,000 ML IV SCH ×2 (08:52→16:23)
[2020-02-20] MEDS: NON FORMULARY DRUG (Cal/D3/Mag11/Zinc/Cop/Mang/Bor [Caltrate 600+D Plus Tablet] 1 EACH Tab PO SCH (08:55)
[2020-02-20] MEDS: NON FORMULARY DRUG (Glucosam/Chon-Msm1/C/Mang/Bosw [Glucosamine-Chondroitin Tablet] 1 EACH PO SCH (08:55)
[2020-02-20] MEDS: NON FORMULARY DRUG (Omega-3 Fatty Acids/Fish Oil [Fish Oil 1,000 Mg Softgel] 1 EACH Capsul PO SCH (08:56)
[2020-02-20] MEDS: NITROGLYCERIN OINT 1 INCH/GM PACKET TOPICAL SCH (08:56)
[2020-02-20] MEDS: CHOLECALCIFEROL 1,000 UNIT TAB PO SCH (09:00)
[2020-02-20] MEDS: amLODIPine 10 MG TAB PO SCH (09:00)
[2020-02-20] MEDS: carvediloL 12.5 MG TAB PO SCH ×2 (09:00→21:00)
[2020-02-20] MEDS: MAGNESIUM OXIDE 400 MG TAB PO SCH (09:00)
[2020-02-20] MEDS: hydrALAZINE HCL 25 MG TAB PO SCH ×3 (09:00→21:01)
[2020-02-20] MEDS: ASPIRIN 81 MG PO SCH (09:00)
[2020-02-20] MEDS: TIMOLOL 0.5% OPHTH DROPS 5 ML BTL BOTH EYES SCH (09:01)
[2020-02-20] MEDS: ISOSORBIDE MONONITRATE ER 30 MG TAB.ER.24H PO SCH (09:25)
[2020-02-20 09:39] LABS: Calcium 9.4 mg/dL (8.4-10.2); Potassium 4.7 mmol/L (3.5-5.1)
--- NOTE | 2020-02-20 12:25 | P.PN ---
Subjective Patient is seen in follow-up for acute kidney injury on chronic kidney disease. Renal function is stable. Denies chest pain or shortness of breath. Good urine output. No vomiting or diarrhea. Hemodynamically stable. Vital signs are stable. General: The patient appeared well nourished and normally developed. HEENT: Head exam is unremarkable. Neck is without jugular venous distension. LUNGS: Breath sounds decreased. HEART: Rate and Rhythm are regular. ABDOMEN: Soft, nontender. EXTREMITITES: No edema. Objective - Vital Signs Vital signs: Vital Signs Temp 97.5 F L 02/20/20 08:00 Pulse 77 02/19/20 09:00 Resp 18 02/20/20 08:00 BP 121/59 02/20/20 08:00 Pulse Ox 98 02/20/20 08:00 Intake & Output 02/19/20 02/20/20 02/20/20 18:59 06:59 18:59 Intake Total 322 Output Total 1800 300 Balance -1478 -300 Weight 86.2 kg Intake: IV 100 Oral 222 Output: Urine 1800 300 Other: # Voids 2 - Labs CBC & Chem 7: 02/19/20 07:57 02/20/20 08:29 Labs: Abnormal Lab Results - Last 24 Hours (Table) 02/20/20 Range/Units 08:29 Chloride 109 H (98-107) mmol/L BUN 34 H (9-20) mg/dL Creatinine 1.97 H (0.66-1.25) mg/dL Glucose 101 H (74-99) mg/dL Assessment and Plan Plan: Assessment: 1. Acute kidney injury mostly prerenal secondary to hemodynamic instability. Creatinine was 2.04 on admission is stable at 1.97 today. UA benign. 2. Chronic kidney disease stage IIIB with baseline creatinine in the range of 1.6-1.9. 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 3. Acute systolic CHF ejection fraction of 20-25%. 4. Chest pain. Status post chronic catheterization this morning which revealed calcified vessels. 5. Metabolic acidosis secondary to acute kidney injury and IV fluids. Better. 6. Hypertension with chronic kidney disease. Controlled. Plan: Off IV fluids. Encourage oral intake. Avoid nephrotoxins. Hold amlodipine and hydralazine for systolic blood pressure less than 130. Continue to monitor renal function and urine output. Anticipate discharge soon. Follow up outpatient in 1-2 weeks.
--- NOTE | 2020-02-20 13:29 | P.PN ---
Subjective This is a pleasant 79-year-old male past medical history significant for hypertension, dyslipidemia, chronic kidney disease and mild nonobstructive coronary artery disease. He follows in the office with Dr. Macdonald. He underwent cardiac catheterization yesterday revealing left main artery calcified but free of stenosis, LAD with a focal area of stenosis 40-50% in the mid and distal portion, circumflex and ramus free of stenosis and RCA with mild to moderate nonobstructive disease. Echocardiogram revealed ejection fraction of 20-25%. He is seen and examined sitting up in bed in no acute distress. Currently he is chest pain-free however he states last evening he did have an episode of left shoulder and arm discomfort similar to presentation. Nitropaste was applied and his discomfort resolved. He denies shortness of breath, dizziness or palpitations. Blood pressure 118/63 heart rate 88 afebrile maintaining oxygen saturation on room air. Telemetry tracings unremarkable for arrhythmia with deep T-wave inversions inferiorly. Currently maintained on aspirin 81 mg daily, atorvastatin 10 mg at bedtime, amlodipine 10 mg daily, carvedilol 12.5 mg twice a day, hydralazine 25 mg 3 times a day and nitro paste. Laboratory data pending. CT of the chest obtained last night revealed a 4.1 cm aneurysm of the ascending aorta and coronary artery calcification. GENERAL: Well-appearing, well-nourished and in no acute distress. NECK: Supple without JVD or thyromegaly. LUNGS: Breath sounds clear to auscultation bilaterally. Respiration equal and unlabored. No wheezes, rales or rhonchi. HEART: Regular rate and rhythm without murmurs, rubs or gallops. S1 and S2 heard. EXTREMITIES: Normal range of motion, no edema. No clubbing or cyanosis. Peripheral pulses intact. ASSESSMENT Non-ST elevated myocardial infarction Takotsubo Acute systolic heart failure Ascending aortic aneurysm, 4.1 cm. Chronic kidney disease Hypertension Dyslipidemia PLAN Repeat EKG. Increase atorvastatin to 80 mg daily. Initiate plavix 75 mg daily. Discontinue norvasc and nitropaste. Initiate imdur 30 mg daily. Increase activity and ambulation in the halls, assess for recurrent chest pain. Await repeat renal function. Not currently on an DEMETRIO/ARB due to worsening renal function. Nurse Practitioner note has been reviewed, I agree with a documented findings and plan of care. Patient was seen and examined. Objective - Vital Signs Vital signs: Vital Signs Temp 98.3 F 02/20/20 04:00 Pulse 77 02/19/20 09:00 Resp 18 02/20/20 04:00 BP 118/63 02/20/20 04:00 Pulse Ox 98 02/20/20 04:00 Intake & Output 02/19/20 02/20/20 02/20/20 18:59 06:59 18:59 Intake Total 322 Output Total 1800 300 Balance -1478 -300 Weight 86.2 kg Intake: IV 100 Oral 222 Output: Urine 1800 300 Other: # Voids 2 - Labs CBC & Chem 7: 02/19/20 07:57 02/20/20 08:29
[2020-02-20] MEDS: CLOPIDOGREL 75 MG TAB PO SCH (16:22)
--- NOTE | 2020-02-20 17:38 | PN ---
PROGRESS NOTE An 79-year-old male status post heart catheterization diagnosis with Takotsubo disease, non STEMI, had a CT scan of the chest which was negative. Acute systolic heart failure due to heart shock syndrome, acute systolic heart failure, aortic aneurysm, chronic kidney disease, hypertension, dyslipidemia. Clinically temperature 98.3, pulse 73, respiratory 16-18, blood pressure is 110 to 120s over 60s to 70s. Pulse ox 98 on room air. PLAN: Cardiology is going to repeat his EKG, increases cholesterol pills. Start him on Plavix. Discontinue Norvasc, nitro paste and give him Imdur. Increase activity in the halls. Await repeat renal function. No DEMETRIO or ARB due to renal function. Possibly discharge home in the morning if cleared by Cardiology and renal physician. MMODL / IJN: [id number] /
[2020-02-20 20:58] VITALS: RESP 16; TEMP 97.8
[2020-02-20] MEDS ORDERED: ATORVASTATIN 80 MG TAB PO SCH (21:00)
[2020-02-20] MEDS: SENNOSIDES 8.6 MG TAB PO PRN (21:02)
[2020-02-21 08:28] LABS: Calcium 9.3 mg/dL (8.4-10.2); Potassium 4.3 mmol/L (3.5-5.1)
[2020-02-21] MEDS: CLOPIDOGREL 75 MG TAB PO SCH ×2 (09:17→09:18)
[2020-02-21] MEDS: ASPIRIN 81 MG PO SCH (09:17)
[2020-02-21] MEDS: NON FORMULARY DRUG (Cal/D3/Mag11/Zinc/Cop/Mang/Bor [Caltrate 600+D Plus Tablet] 1 EACH Tab PO SCH (09:18)
[2020-02-21] MEDS: hydrALAZINE HCL 25 MG TAB PO SCH (09:18)
[2020-02-21] MEDS: CHOLECALCIFEROL 1,000 UNIT TAB PO SCH (09:18)
[2020-02-21] MEDS: carvediloL 12.5 MG TAB PO SCH (09:18)
[2020-02-21] MEDS: ISOSORBIDE MONONITRATE ER 30 MG TAB.ER.24H PO SCH (09:18)
[2020-02-21] MEDS: MAGNESIUM OXIDE 400 MG TAB PO SCH (09:18)
[2020-02-21] MEDS: NON FORMULARY DRUG (Glucosam/Chon-Msm1/C/Mang/Bosw [Glucosamine-Chondroitin Tablet] 1 EACH PO SCH (09:19)
--- NOTE | 2020-02-21 10:23 | P.PN ---
Subjective Patient is seen in follow-up for acute kidney injury on chronic kidney disease. Renal function is stable. Denies chest pain or shortness of breath. Good urine output. No vomiting or diarrhea. Hemodynamically stable. No changes overnight. Vital signs are stable. General: The patient appeared well nourished and normally developed. HEENT: Head exam is unremarkable. Neck is without jugular venous distension. LUNGS: Breath sounds decreased. HEART: Rate and Rhythm are regular. ABDOMEN: Soft, nontender. EXTREMITITES: No edema. Objective - Vital Signs Vital signs: Vital Signs Temp 97.8 F 02/21/20 04:38 Pulse 81 02/21/20 04:38 Resp 16 02/21/20 04:38 BP 115/59 02/21/20 04:38 Pulse Ox 96 02/21/20 04:38 Intake & Output 02/20/20 02/21/20 02/21/20 18:59 06:59 18:59 Intake Total 320 120 320 Balance 320 120 320 Weight 87.1 kg Intake: Oral 320 120 320 Other: Voiding Method Toilet # Voids 1 2 - Labs CBC & Chem 7: 02/19/20 07:57 02/21/20 08:04 Labs: Abnormal Lab Results - Last 24 Hours (Table) 02/21/20 Range/Units 08:04 Chloride 108 H (98-107) mmol/L BUN 43 H (9-20) mg/dL Creatinine 2.07 H (0.66-1.25) mg/dL Glucose 124 H (74-99) mg/dL Assessment and Plan Plan: Assessment: 1. Acute kidney injury mostly prerenal secondary to hemodynamic instability. Renal function stable. Creatinine 2.07 today. UA benign. 2. Chronic kidney disease stage IIIB with baseline creatinine in the range of 1.6-1.9. 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 3. Acute systolic CHF ejection fraction of 20-25%. 4. Chest pain. Status post cardiac catheterization on 02/19/2020 which revealed calcified vessels. 5. Metabolic acidosis secondary to acute kidney injury and IV fluids. Better. 6. Hypertension with chronic kidney disease. Controlled. Plan: Off IV fluids. Encouraged oral intake. Avoid nephrotoxins. Hold amlodipine and hydralazine for systolic blood pressure less than 130. Okay to add low-dose acei or arb if blood pressure able to tolerate. Continue to monitor renal function and urine output. Anticipate discharge soon. Follow up outpatient in 1-2 weeks.
[2020-02-21] MEDS: SENNOSIDES 8.6 MG TAB PO PRN (11:36)
[2020-02-21] MEDS: TIMOLOL 0.5% OPHTH DROPS 5 ML BTL BOTH EYES SCH (11:36)
--- NOTE | 2020-02-21 11:54 | PN ---
PROGRESS NOTE Mr. Martinez is an 79-year-old male who presented with symptoms of chest discomfort and EKG changes with mild troponin elevation underwent cardiac catheterization and was found to have no evidence of significant obstructive disease. His echocardiogram showed new segmental wall motion abnormality raising possibility of Takotsubo syndrome, although discussing with the patient he denies any acute stressful situation. He is doing well this morning, ambulating without difficulty. Denying any chest pain. No dizziness. No palpitation. No nausea. He continued to be on aspirin once a day, Lipitor 80 mg daily, Coreg 12.5 mg twice a day, Plavix 75 mg daily, hydralazine 25 mg 3 times a day, isosorbide mononitrate 30 mg daily. PHYSICAL EXAMINATION: Blood pressure 115/59 with the heart rate in the 80s. LUNGS: Clear. HEART: Regular rate and rhythm. S1, S2. No S3. No rub. ABDOMEN: Soft, nontender. EXTREMITIES: No edema. LAB DATA: Lab data revealed BUN and creatinine 35 and 1.93, potassium 4.9. IMPRESSION: 1. Non ST-segment elevation myocardial infarction with probable Takotsubo syndrome with no evidence of significant obstructive disease. 2. Hyperlipidemia. 3. Hypertension. 4. Chronic kidney disease. RECOMMENDATION: From the cardiac standpoint, he should be able to be discharged home today and followed as an outpatient with Dr. Ariadne Macdonald. MMODL / IJN: [id number] /
[2020-02-21 13:50] VITALS: BP 111/55
[2020-02-21 14:09] VITALS: PULSE 71
--- NOTE | 2020-02-27 20:51 | DS ---
DISCHARGE SUMMARY MEDICATIONS: 1. Crestor 5 mg daily. 2. Glucosamine 1 tablet daily. 3. Vitamin D3 1000 daily. 4. Caltrate 1 tablet daily. 5. Ecotrin 81 mg daily. 6. Norvasc 5 mg daily. 7. Coreg 12.5 b.i.d. 8. Timoptic 0.5 mg ophthalmic solution both eyes daily. 9. [place]-3 fatty acids q.48 hours. 10.Magnesium 250 daily. 11.Apresoline 25 t.i.d. 12.Isosorbide 30 mg daily. 13.Lipitor 80 mg daily. 14.Nitroglycerin sublingual 0.4 mg sublingually daily. 15.Plavix 75 mg daily. CONDITION: Stable. PROGNOSIS: Guarded. Ambulate as tolerated. The patient was admitted hit with possible non-STEMI with a heart catheterization which showed no significant obstruction, poor ejection fraction of 30% to 35%. He was found to have takotsubo syndrome, which was treated with systolic CHF medications. Chest CT was negative. Creatinine was 3.2, 2.2, normal is 1.9. It went down to 1.9 on discharge. Normal is 1.6. He has chronic kidney disease, stage 3 to 4. Medications were stabilized per home visits nurse and renal doctor. Follow up as outpatient for takotsubo syndrome. Treat for systolic CHF. Please see further orders. MMODL / IJN: [id number] /
== END 2020-02-21 16:14 | disposition home or self-care (01) | DRG 280 ==
LOC: EC 07:29 → 1SOBS 10:35 → 3SCARD 19:26 → OBSVTOIN 02-19 11:16
PROVIDERS: ADMIT Family Medicine; ATTEND Family Medicine
PROC: B2111ZZ Fluoroscopy of Multiple Coronary Arteries using Low Osmolar Contrast (ICD-10-PCS; principal; 2020-02-19 09:55)
PROC: 4A023N7 Measurement of Cardiac Sampling and Pressure, Left Heart, Percutaneous Approach (ICD-10-PCS; principal; 2020-02-19 09:55)
DX: I21.4 Non-ST elevation (NSTEMI) myocardial infarction (principal); I50.21 Acute systolic (congestive) heart failure; R57.0 Cardiogenic shock; N17.9 Acute kidney failure, unspecified; E87.2 Acidosis; I13.0 Hypertensive heart and chronic kidney disease with heart failure and stage 1 through stage 4 chronic kidney disease, or unspecified chronic kidney disease; I51.81 Takotsubo syndrome; N11.9 Chronic tubulo-interstitial nephritis, unspecified; N18.32 Chronic kidney disease, stage 3b; M35.3 Polymyalgia rheumatica; I71.2 Thoracic aortic aneurysm, without rupture; I25.10 Atherosclerotic heart disease of native coronary artery without angina pectoris; E78.5 Hyperlipidemia, unspecified; I45.4 Nonspecific intraventricular block; Z79.82 Long term (current) use of aspirin; Z79.899 Other long term (current) drug therapy; Z87.81 Personal history of (healed) traumatic fracture; Z87.19 Personal history of other diseases of the digestive system; Z90.89 Acquired absence of other organs; Z98.890 Other specified postprocedural states; Z88.5 Allergy status to narcotic agent; Z82.0 Family history of epilepsy and other diseases of the nervous system; Z80.9 Family history of malignant neoplasm, unspecified
CPT/HCPCS: 36415; 71046; 71250; 72125; 78582; 80048; 80053; 81003; 83735; 84484; 85025; 85379; 85610; 85730; 93005; 93306; 93458; 96374; 96375; 99285

== ENCOUNTER → 2020-08-29 | Outpatient (CLI) | payer MEDICARE | END | disposition home or self-care (01) | LOC: LABWHC1 10:36 | PROVIDERS: ATTEND Nurse Practitioner Family | DX: E87.5 Hyperkalemia (principal) | CPT/HCPCS: 36415; 84132 ==

== ENCOUNTER → 2020-09-23 | Outpatient (CLI) | payer MEDICARE ==
--- NOTE | 2020-09-23 15:41 | US ---
EXAMINATION TYPE: US kidneys/renal and bladder DATE OF EXAM: 09/23/2020 COMPARISON: US CLINICAL HISTORY: N18.32 Chronic Kidney Disease Stage 3. CKD EXAM MEASUREMENTS: Right Kidney: 8.8 x 5.3 x 5.4 cm Left Kidney: 9.3 x 4.0 x 3.5 cm Right Kidney: Small in size, cortical thinning, multicystic with largest cyst measured- mid pole= 4.9 x 4.0 x 4.5 cm Left Kidney: Cortical thinning, multicystic with largest cyst measured- lower pole= 1.9 x 1.58 x 2.0 cm Bladder: bladder wall diverticula may be present. Bilateral Jets seen: No IMPRESSION: 1. Large renal cysts. 2. Urinary bladder wall diverticulum posteriorly may be present.
== END | disposition home or self-care (01) ==
LOC: RADUSWWP 12:50
PROVIDERS: ATTEND Internal Medicine Nephrology
DX: N28.1 Cyst of kidney, acquired (principal); N18.32 Chronic kidney disease, stage 3b
CPT/HCPCS: 76770

== ENCOUNTER → 2021-04-09 | Outpatient (CLI) | payer MEDICARE ==
--- NOTE | 2021-04-10 08:22 | CT ---
EXAMINATION TYPE: CT abdomen pelvis wo con DATE OF EXAM: 04/09/2021 COMPARISON: CT chest 02/19/2020, CT 01/24/2015 HISTORY: Nausea and lower abdominal/pelvic pain CT DLP: 613.4 mGycm Automated exposure control for dose reduction was used. TECHNIQUE: Helical acquisition of images from the lung bases through the pelvis. FINDINGS: Lack of intravenous contrast could compromise sensitivity. Right hemidiaphragm is elevated as on prior LUNG BASES: Minimal basilar nodularity left posterior costophrenic sulcus thought to be stable AORTA: Ascending aortic aneurysm is borderline, root of aorta measures 4.1 cm. Coronary artery calci fications are present, no pericardial effusion. Atheromatous changes are present LIVER/GB: No significant interval change, liver and gallbladder show stable appearance is appreciated . PANCREAS: No significant abnormality is seen. SPLEEN: Splenic hilum shows calcified aneurysm which is unchanged, approximately 2.2 cm. ADRENALS: No significant abnormality is seen. KIDNEYS: Cortical cysts within the kidneys again noted REPRODUCTIVE ORGANS: Prostate is enlarged and shows associated calcification URINARY BLADDER: Thickened urinary bladder wall is present, difficult to exclude cystitis. BOWEL: No significant abnormality is seen. Colonic interposition noted anterior to the liver. Retain ed fecal debris present throughout the distribution of the colon. No evident appendicitis. FREE AIR: No Free Air is visible. ASCITES: None visible. PELVIC ADENOPATHY: None visualized. RETROPERITONEAL ADENOPATHY: No Retroperitoneal Adenopathy visible. OSSEOUS STRUCTURES: No there is a spinal curvature. Degenerative disc changes are present in the vis ualized spine, there is associated facet arthropathy.. IMPRESSION: CORRELATE FOR FECAL STASIS. NONCONTRAST EXAM. NO ACUTE ABNORMALITY IS EVIDENT. CORRELATE FOR CHRONIC BLADDER OUTLET OBSTRUCTION.
== END | disposition home or self-care (01) ==
LOC: RADCTMAIN 18:09
PROVIDERS: ATTEND Family Medicine
DX: A08.4 Viral intestinal infection, unspecified (principal)
CPT/HCPCS: 74176

== ENCOUNTER → 2021-07-29 | Outpatient (CLI) | payer MEDICARE ==
--- NOTE | 2021-07-29 15:35 | XR ---
EXAMINATION TYPE: XR wrist complete LT DATE OF EXAM: 07/29/2021 COMPARISON: NONE HISTORY: 80-year-old male S69.92XA, left wrist trauma, pain after fall one day ago. TECHNIQUE: 4 views FINDINGS: Soft tissue swelling about the wrist. Minimal negative ulnar variance. There is lucency seen involvin g the ulnar aspect of the triquetrum on the AP view. Mid carpal compartment otherwise intact as is th e radial carpal and distal ulnar joint. IMPRESSION: Prominent soft tissue swelling at the wrist. Correlate with point tenderness along the medial margin of the triquetrum for subtle nondisplaced triquetral fracture.
== END | disposition home or self-care (01) ==
LOC: RADXRMAIN 15:05
PROVIDERS: ATTEND Family Medicine
DX: S69.92XA Unspecified injury of left wrist, hand and finger(s), initial encounter (principal); X58.XXXA Exposure to other specified factors, initial encounter

== ENCOUNTER → 2021-09-01 | Outpatient (CLI) | payer MEDICARE ==
--- NOTE | 2021-09-02 08:40 | US ---
EXAMINATION TYPE: US kidneys/renal and bladder DATE OF EXAM: 09/01/2021 COMPARISON: 09/23/[address] 04/09/2021 CLINICAL HISTORY: 80-year-old male N18.32 CHRONIC KIDNEY DISEASE, STAGE 3B. TECHNIQUE: Multiple sonographic images of the kidneys and bladder are obtained. FINDINGS: EXAM MEASUREMENTS: Right Kidney: 8.8 x 5.3 x 4.4 cm Left Kidney: 10.0 x 3.9 x 4.4 cm Right Kidney: measures small, cortical thinning. Multiple cysts are present, largest measured mid at 5.3 x 5.0 x 5.4cm. Left Kidney: Cortical thinning, multiple cysts are present, largest cyst measuring the lower pole 1.9 x 2.2 x 1.8cm Bladder: Underdistention limited evaluation. The bag adjuster notes that the patient felt full. *Incidental finding of isoechoic, round splenic lesion measuring 7.8 x 5.8 x 6.4cm (versus 7.4 cm on the 04/09/2021 CT in retrospect. Approximately 7.0 cm in 2014). IMPRESSION: 1. Changes of chronic medical renal disease. No hydronephrosis. 2. Bilateral renal cortical cysts measuring up to 5.4 cm on the right and 2.2 cm on the left. 3. Underdistention of the bladder limits its evaluation. The bag adjuster notes that the patient felt full. 4. Incidentally seen solid round 7.8 cm lesion of the spleen (versus 7.4 cm on 04/09/2021 and 7.0 cm i n 2015). Indolent/nonaggressive behavior. The etiology is unclear. Consider a nuclear medicine sulfur colloid liver spleen scan to assess if this represents variant anatomy with a masslike appearance to a portion of the spleen versus an underlying lesion.
== END | disposition home or self-care (01) ==
LOC: RADUSWWP 15:38
PROVIDERS: ATTEND Internal Medicine Nephrology
DX: N18.32 Chronic kidney disease, stage 3b (principal)
CPT/HCPCS: 76770

== ENCOUNTER → 2021-10-28 | Outpatient (CLI) | payer MEDICARE ==
--- NOTE | 2021-10-28 17:37 | CA ---
Transthoracic Echo Report Name: Victor M Martinez Age: 81 Gender: M : 1940 Exam Date: 10/28/2021 09:58 Exam Location: [facility] Ht (in): 73 Wt (lb): 187 Ordering Physician: Lesvia Villalpando DO Attending/Referring Phys: Lesvia Villalpando DO [employer] Supervisor Marilyn Noland RDCS Procedure CPT: Indications: I11.9 hypertensive heart disease Cardiac Hx: Technical Quality: Fair Contrast 1: Total Dose (mL): Contrast 2: Total Dose (mL): MEASUREMENTS (Male / Female) Normal Values 2D ECHO LV Diastolic Diameter PLAX 4.3 cm 4.2 - 5.9 / 3.9 - 5.3 cm LV Systolic Diameter PLAX 3.2 cm IVS Diastolic Thickness 1.4 cm 0.6 - 1.0 / 0.6 - 0.9 cm LVPW Diastolic Thickness 1.3 cm 0.6 - 1.0 / 0.6 - 0.9 cm LV Relative Wall Thickness 0.6 RV Internal Dim ED PLAX 3.2 cm LA Volume 53.8 cm??? 18 - 58 / 22 - 52 cm??? M-MODE Aortic Root Diameter MM 3.7 cm LA Systolic Diameter MM 4.2 cm LA Ao Ratio MM 1.1 AV Cusp Separation MM 2.0 cm DOPPLER AV Peak Velocity 105.5 cm/s AV Peak Gradient 4.5 mmHg AI Peak Velocity 347.4 cm/s AI Peak Gradient 48.3 mmHg AI Pressure Half Time 548.0 ms LVOT Peak Velocity 54.4 cm/s LVOT Peak Gradient 1.2 mmHg MV Area PHT 3.0 cm??? Mitral E Point Velocity 44.1 cm/s Mitral A Point Velocity 115.9 cm/s Mitral E to A Ratio 0.4 MV Deceleration Time 255.0 ms MV E' Velocity 5.3 cm/s Mitral E to MV E' Ratio 8.3 TR Peak Velocity 207.9 cm/s TR Peak Gradient 17.3 mmHg Right Ventricular Systolic Press 21.9 mmHg FINDINGS Left Ventricle Moderately increased left ventricular wall thickness. Mildly reduced global left ventricular systolic function. Left ventricular ejection fraction is estimated at 40-45 %. Right Ventricle Normal right ventricular size and function. Right ventricular systolic pressure within normal limits. Right Atrium Normal right atrial size. Left Atrium Normal left atrial size. Mitral Valve Structurally normal mitral valve. Mild mitral annular calcification. Mild mitral regurgitation. Aortic Valve No aortic stenosis. Trace to mild aortic regurgitation. Aortic valve sclerosis. Tricuspid Valve Mild tricuspid regurgitation. Pulmonic Valve Trace pulmonic regurgitation. Pericardium No pericardial effusion. Aorta Normal size aortic root and proximal ascending aorta. CONCLUSIONS [Ejection fraction of about 40-45% with inferior wall hypokinesis Previewed by: Dr. José Ghosh MD (Electronically Signed) Final Date: 28 October 2021 17:36
== END | disposition home or self-care (01) ==
LOC: RADECHMAIN 09:56
PROVIDERS: ATTEND Internal Medicine Cardiovascular Disease
DX: I11.0 Hypertensive heart disease with heart failure (principal); I50.40 Unspecified combined systolic (congestive) and diastolic (congestive) heart failure; I21.4 Non-ST elevation (NSTEMI) myocardial infarction; E78.2 Mixed hyperlipidemia; I95.1 Orthostatic hypotension
CPT/HCPCS: 93306

== ENCOUNTER → 2021-10-29 | Outpatient (CLI) | payer MEDICARE ==
--- NOTE | 2021-11-11 09:49 | EM ---
EVENT MONITOR STUDY PERFORMED: 7-day event monitor. INDICATION: Rule out cardiac arrhythmia. The patient was monitored for days. The baseline rhythm appeared to be sinus mechanism. During the 7 days monitoring, the patient did have multiple episodes of what seems to be paroxysmal atrial tachycardia. Also the patient did have multiple episodes of PVCs as well as PACs. No significant sinus pause or sinus arrest seen. CONCLUSION: 1. This is a 7-day event monitor. 2. The baseline rhythm appeared to be sinus mechanism. 3. The patient did have multiple episodes of paroxysmal atrial tachycardia. 4. The patient did have PVCs and PACs. 5. No symptoms reported. MMODL / IJN: [id number] /
== END | disposition home or self-care (01) ==
LOC: RADECHMAIN 08:06
PROVIDERS: ATTEND Internal Medicine Cardiovascular Disease
DX: I50.40 Unspecified combined systolic (congestive) and diastolic (congestive) heart failure (principal); I21.4 Non-ST elevation (NSTEMI) myocardial infarction; I11.9 Hypertensive heart disease without heart failure; E78.2 Mixed hyperlipidemia; I95.1 Orthostatic hypotension; I10 Essential (primary) hypertension
CPT/HCPCS: 93270

== ENCOUNTER → 2021-11-03 | Outpatient (CLI) | payer MEDICARE | END | disposition home or self-care (01) | LOC: RADNMMAIN 12:35 | PROVIDERS: ATTEND Family Medicine | DX: D73.9 Disease of spleen, unspecified (principal) | CPT/HCPCS: 78215; A9541 ==

== ENCOUNTER 2021-12-01 09:35 | Observation (INO) | payer MEDICARE ==
[2021-12-01] MEDS ORDERED: HEPARIN SODIUM 1,000 UN/ML (10ML VL) IV ONE (09:41)
[2021-12-01] MEDS ORDERED: NITROGLYCERIN OINT 1 INCH/GM PACKET TOPICAL STA (09:41)
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
[2021-12-01 10:21] LABS: Basophils % (A) 0 %; Eosinophils # (A) 0.1 k/uL (0-0.7); Eosinophils % (A) 4 %; HCT 34.6 % (39.0-53.0); HGB 11.8 gm/dL (13.0-17.5); Lymphocytes # (A) 1.2 k/uL (1.0-4.8); Lymphocytes % (A) 30 %; MCH 32.6 pg (25.0-35.0); MCHC 34.1 g/dL (31.0-37.0); MCV 95.6 fL (80.0-100.0); Mean Platelet Volume 10.7; Monocytes # (A) 0.2 k/uL (0-1.0); Monocytes % (A) 5 %; Neutrophils # (A) 2.3 k/uL (1.3-7.7); Neutrophils % (A) 59 %; Platelet Count 110 k/uL (150-450); RBC 3.62 m/uL (4.30-5.90); RDW 12.9 % (11.5-15.5); WBC 3.8 k/uL (3.8-10.6)
[2021-12-01 10:26] LABS: Albumin 3.5 g/dL (3.5-5.0); Calcium 8.4 mg/dL (8.4-10.2); Potassium 4.8 mmol/L (3.5-5.1); Total Bilirubin 0.8 mg/dL (0.2-1.3)
[2021-12-01 10:31] LABS: Prothrombin Time 10.7 sec (9.0-12.0)
[2021-12-01] MEDS: HEPARIN SOD,PORK IN 0.45% NACL 25,000 UNIT in 0.45% NACL 1 250ML.BAG IV SCH (11:43)
--- NOTE | 2021-12-01 12:44 | XR ---
EXAMINATION TYPE: XR chest 2V DATE OF EXAM: 12/01/2021 12:35 PM COMPARISON: Chest radiographs from 02/18/2020 CT chest 02/19/2020. TECHNIQUE: XR chest 2V Frontal and lateral views of the chest. CLINICAL INDICATION:Male, 81 years old with history of Chest Pain; FINDINGS: Lungs/Pleura: There is no evidence of pleural effusion, focal consolidation, or pneumothorax. Chronic senescent parenchymal changes. Pulmonary vascularity: Unremarkable. Heart/mediastinum: Cardiomediastinal silhouette is unremarkable. Atherosclerotic calcifications are seen in the aorta. Musculoskeletal: No acute osseous pathology. Degenerative changes of the visualized spine. IMPRESSION: No acute cardiopulmonary disease/process.
[2021-12-01] MEDS ORDERED: NITROGLYCERIN SL TABS 0.4 MG TAB SUBLINGUAL PRN (13:56)
[2021-12-01] MEDS ORDERED: NON FORMULARY DRUG (Omega-3 Fatty Acids/Fish Oil [Fish Oil 1,000 Mg Softgel] 1 EACH Capsul PO SCH (15:30)
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
[2021-12-01] MEDS: SODIUM CHLORIDE 0.9% 1,000 ML IV SCH (17:34)
[2021-12-01] MEDS: NITROGLYCERIN OINT 1 INCH/GM PACKET TOPICAL SCH ×2 (17:35→23:22)
[2021-12-01] MEDS: carvediloL 12.5 MG TAB PO SCH (17:35)
[2021-12-01] MEDS: hydrALAZINE HCL 25 MG TAB PO SCH (20:42)
[2021-12-01] MEDS ORDERED: SEVELAMER 800 MG TAB PO SCH (21:00)
[2021-12-01] MEDS ORDERED: ATORVASTATIN 80 MG TAB PO SCH (21:00)
[2021-12-02] MEDS: NITROGLYCERIN OINT 1 INCH/GM PACKET TOPICAL SCH ×3 (05:35→17:41)
[2021-12-02 07:55] VITALS: RESP 16
[2021-12-02] MEDS: carvediloL 12.5 MG TAB PO SCH ×2 (08:03→17:41)
[2021-12-02] MEDS: hydrALAZINE HCL 25 MG TAB PO SCH (08:21)
[2021-12-02] MEDS ORDERED: amLODIPine 2.5 MG TAB PO SCH (09:00)
[2021-12-02] MEDS ORDERED: NON FORMULARY DRUG (Aspirin Ec 81 MG Tablet.Dr) PO SCH (09:00)
[2021-12-02] MEDS ORDERED: MAGNESIUM OXIDE 400 MG TAB PO SCH (09:00)
[2021-12-02] MEDS ORDERED: ASPIRIN 325 MG TAB PO SCH (09:00)
[2021-12-02] MEDS ORDERED: LATANOPROST 0.005% OPHTH DROPS 2.5 ML BTL BOTH EYES SCH (09:00)
[2021-12-02 09:16] LABS: HDL Cholesterol 39.2 mg/dL (40.00-60.00); Triglycerides 45.4 mg/dL (0.00-149.00)
[2021-12-02 09:34] LABS: Chol/HDL Ratio 1.76 Ratio; LDL Cholesterol,Direct Reflex 23.1 mg/dL (0.00-129.00)
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
--- NOTE | 2021-12-02 10:57 | CA ---
Transthoracic Echo Report Name: Victor M Martinez Age: 81 Gender: M : 1940 Exam Date: 12/01/2021 16:03 Exam Location: [place] [facility] Ht (in): 72 Wt (lb): 189 Ordering Physician: Dani Turner MD Attending/Referring Phys: Printing Pressman Lalita Duff RDCS Procedure CPT: Indications: Chest Pain Cardiac Hx: Echo done 10/29/21 Technical Quality: Contrast 1: Total Dose (mL): Contrast 2: Total Dose (mL): MEASUREMENTS (Male / Female) Normal Values FINDINGS Left Ventricle Left ventricular ejection fraction is estimated at 40-45 %. Mildly increased left ventricular wall thickness. Right Ventricle Normal right ventricular size and function. Right Atrium Normal right atrial size. Left Atrium Left atrial dilatation. Mitral Valve Structurally normal mitral valve. Mild mitral regurgitation. Aortic Valve Trileaflet aortic valve. Aortic valve sclerosis. Tricuspid Valve Structurally normal tricuspid valve. Mild tricuspid regurgitation. Pulmonic Valve Structurally normal pulmonic valve. Mild pulmonic regurgitation. Pericardium Normal pericardium. Aorta Normal size aortic root and proximal ascending aorta. CONCLUSIONS Left ventricular ejection fraction 40-45% Mild increased left ventricular wall thickness Mild mitral regurgitation Mild tricuspid regurgitation No pericardial effusion Previewed by: Dr. Sunil Dove DO (Electronically Signed) Final Date: 02 December 2021 10:56
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
--- NOTE | 2021-12-02 11:55 | CA ---
Stress Echo Report Victor M Martinez Age: 81 Gender: M : 1940 Exam Date: 12/02/2021 10:29 Exam Location: [place] [facility] Ht (in): 61 Wt (lb): 188 Ordering Physician: Mary Kate Santos Referring Physician: SOLIS, Button Grader: Lalita Duff RDCS Technologist Procedure CPT: Indication: Chest Pain ICD-9 Codes: Rhythm: Patient History: Cardiac Medications: Medications in past 24 hours: Contrast: N/A Stress Results Protocol: Aly Total dose(mL): Exercise Duration (min:sec): Max ST Depression (mm): Angina Score: Dangelo Score: METS: 4.4 Resting HR: 69 Resting BP: 145 / 79 Peak HR: 113 Peak BP: 150 / 70 Max Predicted HR: 137 82 % Max Predicted HR Target HR: 116 Double Product: 04720 Stress Summary: BP Response: Reason for Termination: PT SOB Cardiac Symptoms: ECG Analysis Resting ECG: Stress ECG: Arrhythmia: Echo Analysis Resting Echo: Peak Echo Analysis: MEASUREMENTS (Male/Female) Normal Values CONCLUSIONS Patient underwent exercise stress echo with a Aly protocol treadmill stress test. Patient exercised into Stage 1 for a total of 2 minutes and 59 seconds reaching a total of 4.4 METS. Patient's maximum heart rate was 113 which represented 82 % age- predicted maximum heart rate. Stress EKG portion: At baseline patient's EKG showed normal sinus rhythm, normal axis, no significant ST or T wave abnormalities. At peak exercise, EKG showed occasional PACs, no significant change from baseline. Stress echo portion: 2-D echocardiogram was performed in the parasternal long, personal short, apical 2 and apical four-chamber views at rest, peak exercise and in recovery. At baseline, echocardiogram showed left ventricular ejection fraction 50-55% without wall motion abnormalities. With peak exercise, echocardiogram shows improvement in left ventricular ejection fraction, increase contractility, decrease in left ventricular end systolic dimension without wall motion abnormalities consistent with a normal response to exercise. Conclusions: 1. Technically nondiagnostic study secondary to inability to reach 85% maximum predicted heart rate. 2. However at 82% maximum predicted heart rate, normal EKG and echo response to exercise without evidence of inducible ischemia. 3. Poor exercise capacity. 4. Left ventricular ejection fraction 50-55% Dr. Sunil Dove DO (Electronically Signed) Final Date: 02 December 2021 11:53
--- NOTE | 2021-12-02 12:41 | NM ---
EXAMINATION TYPE: NM pul vent and perfuse DATE OF EXAM: 12/02/2021 COMPARISON: Chest CT from one day earlier. Prior nuclear medicine perfusion study February 18, 2020 HISTORY: Chest pain and elevated d-dimer. TECHNIQUE: Utilizing inhalation of 36.8 mCi Tc 99m DTPA aerosol and intravenous injection of 5 mCi o f Tc 99m MAA, ventilation and perfusion images are acquired post injection in multiple projections. FINDINGS: Normal radiotracer distribution is noted in the lungs. There is no evidence of mismatched defects. Mi nimal central clumping on ventilation images redemonstrated. IMPRESSION: Low probability for pulmonary embolism.
[2021-12-02] MEDS: HEPARIN SOD,PORK IN 0.45% NACL 25,000 UNIT in 0.45% NACL 1 250ML.BAG IV SCH (13:15)
[2021-12-02] MEDS: SODIUM CHLORIDE 0.9% 1,000 ML IV SCH (15:25)
[2021-12-02 15:44] VITALS: BP 117/62; PULSE 70; TEMP 97.7
[2021-12-03] MEDS ORDERED: ASPIRIN 81 MG PO SCH (09:00)
== END 2021-12-02 19:30 | disposition home or self-care (01) ==
LOC: EC 09:35 → 6NMEDSUR 13:56
PROVIDERS: ADMIT Family Medicine; ATTEND Family Medicine
DX: R07.89 Other chest pain (principal); I12.9 Hypertensive chronic kidney disease with stage 1 through stage 4 chronic kidney disease, or unspecified chronic kidney disease; N18.4 Chronic kidney disease, stage 4 (severe); M35.3 Polymyalgia rheumatica; I25.10 Atherosclerotic heart disease of native coronary artery without angina pectoris; E78.5 Hyperlipidemia, unspecified; Z79.02 Long term (current) use of antithrombotics/antiplatelets; Z79.82 Long term (current) use of aspirin; Z79.899 Other long term (current) drug therapy; Z88.5 Allergy status to narcotic agent; Z82.49 Family history of ischemic heart disease and other diseases of the circulatory system
CPT/HCPCS: 96372; 99285; 36415; 93005; 93306; 93351; 85379; 83880; 80061; 80053; 83690; 83735; 84484; 85025; 85610; 85730 ×2; 83721; 84145; 71046; 71250; 78582; G0378 ×2; A9540; A9567; J1644 ×2

== ENCOUNTER → 2022-01-25 | Outpatient (CLI) | payer MEDICARE ==
--- NOTE | 2022-01-25 12:39 | XR ---
EXAMINATION TYPE: XR bone survey complete DATE OF EXAM: 01/25/2022 COMPARISON: NONE HISTORY: D61.818 OTHER PANCYTOPENIA Bony calvarium : 2 views of the bony calvarium demonstrate No evidence for sclerotic or lytic lesion. Spine: Two views of the cervical, thoracic and lumbar spines are submitted. Advanced degenerative ch anges noted. No evidence for sclerotic or lytic lesion. PELVIS: Single view of the pelvis demonstrates No evidence for sclerotic or lytic lesion. UPPER EXTREMITIES: Two views of the upper extremities No evidence for sclerotic or lytic lesion. LOWER EXTREMITIES: 2 views of the lower extremities and evidence for sclerotic or lytic lesion. IMPRESSION: No evidence for sclerotic or lytic lesion.
== END | disposition home or self-care (01) ==
LOC: RADXRMAIN 11:44
PROVIDERS: ATTEND Internal Medicine Hematology & Oncology
DX: D61.818 Other pancytopenia (principal); N18.9 Chronic kidney disease, unspecified; M12.9 Arthropathy, unspecified; R06.02 Shortness of breath
CPT/HCPCS: 77075

== ENCOUNTER 2022-06-21 10:48 | Observation (INO) | payer MEDICARE ==
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
[2022-06-21 11:42] LABS: Basophils % (A) 0 %; Eosinophils # (A) 0.2 k/uL (0-0.7); Eosinophils % (A) 5 %; HCT 39.5 % (39.0-53.0); HGB 12.6 gm/dL (13.0-17.5); Lymphocytes # (A) 1.5 k/uL (1.0-4.8); Lymphocytes % (A) 31 %; Mean Platelet Volume 10.2; Monocytes # (A) 0.3 k/uL (0-1.0); Monocytes % (A) 6 %; Neutrophils # (A) 2.6 k/uL (1.3-7.7); Neutrophils % (A) 55 %; Platelet Count 123 k/uL (150-450); RBC 4.07 m/uL (4.30-5.90); RDW 12.8 % (11.5-15.5); WBC 4.7 k/uL (3.8-10.6)
[2022-06-21 11:48] LABS: Albumin 3.8 g/dL (3.5-5.0); Calcium 9.6 mg/dL (8.4-10.2); Magnesium 2.1 mg/dL (1.6-2.3); Potassium 5.1 mmol/L (3.5-5.1); Total Bilirubin 0.7 mg/dL (0.2-1.3); Total Protein 6.5 g/dL (6.3-8.2)
[2022-06-21 11:55] LABS: Prothrombin Time 10.3 sec (9.0-12.0)
--- NOTE | 2022-06-21 12:35 | CT ---
EXAMINATION TYPE: CT brain wo con CT DLP: 1096.4 mGycm, Automated exposure control for dose reduction was used. DATE OF EXAM: 06/21/2022 12:24 PM COMPARISON: Prior CT Brain from 10/31/2017. CLINICAL INDICATION:Male, 81 years old with history of dizziness, Dizziness TECHNIQUE: Brain: Multiple axial CT images of the brain were obtained without IV contrast. Coronal and sagittal reformats reviewed. FINDINGS: Brain: Extra-axial spaces: No abnormal extra-axial fluid collections. Ventricular system: Within normal limits Cerebral parenchyma: Cerebral atrophy. No acute intraparenchymal hemorrhage or mass effect. The gaming -white junction is well differentiated. Scattered hypoattenuating areas are seen within the white mat ter. Nonspecific bilateral basal ganglia calcifications. Cerebellum: Unremarkable. Mass effect: No evidence of midline shift. Intracranial vasculature: Atherosclerotic calcifications of the intracranial vessels. Soft tissues: Normal. Calvarium/osseous structures: No depressed skull fracture. Paranasal sinuses and mastoid air cells: Clear Visualized orbits: Bilateral aphakia IMPRESSION: 1. No acute intracranial process. 2. Nonspecific white matter changes, likely secondary to chronic small vessel ischemic disease.
[2022-06-21 13:08] LABS: Appearance,Urine Clear (Clear); Bilirubin,Urine Negative (Negative); Blood,Urine Negative (Negative); Color,Urine Light Yellow; Glucose,Urine (UA) Negative (Negative); Ketones,Urine Negative (Negative); Leukocyte Esterase,Urine Negative (Negative); Nitrite,Urine Negative (Negative); Protein,Urine Negative (Negative); Specific Gravity,Urine 1.009 (1.001-1.035); Urobilinogen,Urine <2.0 mg/dL (<2.0)
[2022-06-21] MEDS ORDERED: NALOXONE 0.4 MG/ML 1 ML VIAL IV PRN (13:42)
--- NOTE | 2022-06-21 15:43 | US ---
EXAMINATION TYPE: US carotid duplex BILAT DATE OF EXAM: 06/21/2022 COMPARISON: CT brain CLINICAL INDICATION: Male, 81 years old with history of dizziness; Dizziness, history of hypertension . TECHNIQUE: Carotid duplex ultrasound examination. Indirect Doppler criteria was utilized. FINDINGS: EXAM MEASUREMENTS: RIGHT: Peak Systolic Velocity (PSV) cm/sec ----- Right CCA: 90.0 ----- Right ICA: 109.5 ----- Right ECA: 85.3 ICA/CCA ratio: 1.2 RIGHT: End Diastole cm/sec ----- Right CCA: 5.4 ----- Right ICA: 28.0 ----- Right ECA: 0.0 LEFT: Peak Systolic Velocity (PSV) cm/sec ----- Left CCA: 109.5 ----- Left ICA: 105.6 ----- Left ECA: 92.2 ICA/CCA ratio: 1.0 LEFT: End Diastole cm/sec ----- Left CCA: 13.7 ----- Left ICA: 22.8 ----- Left ECA: 0.0 VERTEBRALS (direction of flow): Right Vertebral: Antegrade Left Vertebral: Antegrade Rhythm: Arrhythmia BARREL TURNER NOTES: Plaque was seen within bilateral bulbs and left proximal ICA. There is a large hard plaque within the right carotid bulb has some posterior shadowing. IMPRESSION: Atheromatous plaquing without significant flow-limiting stenosis. Criteria for Assigning % of Stenosis / Diameter reduction (Estimation based on the indirect measurements of the internal carotid artery velocities (ICA PSV). 1. Normal (no stenosis)=ICA PSV < 125 cm/s: ratio < 2.0: ICA EDV<40 cm/s. 2. Less than 50% stenosis=ICA PSV < 125 cm/s: ratio < 2.0: ICA EDV<40 cm/s. 3. 50 to 69% stenosis=ICA PSV of 125 to 230 cm/s: ration 2.0 ? 4.0: ICA EDV 40-100 cm/s. 4. Greater than 70% stenosis to near occlusion= ICA PSV > 230 cm/s: ratio > 4.0: ICA EDV > 100 cm/s. 5. Near occlusion= ICA PSV velocities may be low or undetectable: variable ratio and ICA EDV. 6. Total occlusion=unable to detect flow.
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
[2022-06-21] MEDS: carvediloL 12.5 MG TAB PO SCH (16:47)
[2022-06-21] MEDS: SEVELAMER 800 MG TAB PO SCH (16:47)
--- NOTE | 2022-06-21 19:32 | MR ---
EXAMINATION TYPE: MR brain wo con DATE OF EXAM: 06/21/2022 COMPARISON: CT brain 06/21/2022 HISTORY: Dizziness. CONTRAST: Performed utilizing 0 mL intravenous Gadavist contrast. TECHNIQUE: Multiplanar, multiecho imaging on a 3.0 Jaclyn magnet is performed through the brain. Stud y is performed within 24 hours of arrival to the hospital. The craniovertebral junction is normal. The pituitary is normal. Diffusion-weighted imaging is performed. No abnormal hyperintensity is present to suggest an acute i ntracranial infarct or acute ischemic change. There are scattered punctate areas of hyperintensity on T2 and Inversion Recovery weighted sequences which are non-specific but can be related to microvascular ischemic changes. Differential diagnosis w ould include multiple sclerosis, Lyme disease, vasculitis, migraine headaches. Ventricles and sulci are appropriate for the patient age. IMPRESSIONS: 1. Mild periventricular and deep white matter punctate changes, likely on the basis of microvascular ischemic change.
[2022-06-21] MEDS ORDERED: ACETAMINOPHEN TAB 325 MG TAB PO PRN (19:36)
--- NOTE | 2022-06-21 19:50 | CT ---
EXAMINATION TYPE: CT abdomen pelvis wo con DATE OF EXAM: 06/21/2022 COMPARISON: 04/09/2021 INDICATION: Abnormal weight loss and dizziness. DLP: 645.0 mGycm, Automated exposure control for dose reduction was used. CONTRAST: 0 mL of Isovue 300. Study performed without Oral Contrast TECHNIQUE: Axial images were obtained from above the diaphragm to the pubic rami in the axial plane a t 5 mm thick sections. Reconstructed images are reviewed on the computer in the coronal plane. FINDINGS: Limited CT sections are obtained the lung bases. The lung bases are clear. Coronary artery calcifica tion is noted. CT ABDOMEN: Liver: Normal Spleen: There may be some fullness of the anterior portion of the spleen. This was present previously . 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 Pancreas: Normal Adrenal glands: The adrenal glands are normal. Gallbladder: Normal Kidneys: No masses are evident. No hydronephrosis is present. There is a 6.3 cm cyst on the posteri or right mid kidney. There is a 4.6 cm cyst on the anterior mid to inferior right kidney. No renal s tones are evident. Aorta: Vascular calcification is within the aorta. Inferior vena cava: Normal. CT PELVIS: Loops of bowel within the abdomen and pelvis are normal. Study is without oral contrast limiting bowel evaluation. Appendix: Not identified. No dilated tubular structure or inflammatory changes evident. Urinary bladder: Normal. Genitourinary structures: Prostate is somewhat prominent. Osseous structures: No suspicious lytic or sclerotic lesions. Degenerative disc changes and scoliosis are within the lumbar spine. IMPRESSIONS: 1. Right renal cysts.
[2022-06-21] MEDS: hydrALAZINE HCL 25 MG TAB PO SCH (19:55)
[2022-06-21] MEDS: ATORVASTATIN 80 MG TAB PO SCH (19:55)
[2022-06-21] MEDS: SODIUM CHLORIDE 0.9% 1,000 ML IV SCH (20:00)
[2022-06-21] MEDS: IPRATROPIUM-ALBUTEROL 3 ML NEB INHALATION SCH (20:58)
--- NOTE | 2022-06-21 21:56 | HP ---
HISTORY AND PHYSICAL HISTORY OF PRESENT ILLNESS: This 81-year-old gentleman presented to the ER with dizziness and unintentional weight loss. Three weeks ago over he became dizzy over the last 3 or 4 days, both resting and with movement. Denies any ringing in his ear. No head trauma, no visual changes. He has lost 12 pounds in 2 months, unintentional. No history of cancer. His BUN is 42. His creatinine 1.85. CTA of the head shows negative, carotid duplex is normal. PAST MEDICAL HISTORY: Hypertension, renal disease, systolic CHF which is improving. SURGICAL HISTORY: Hernia repair, orthopedic surgery, tonsillectomy. He is negative for orthostatic changes. FAMILY HISTORY: Father, heart disease. Mother, MS. Brother, cancer. Sister, cancer. HOME MEDICINES: Reviewed. ALLERGIES: Codeine. PHYSICAL EXAMINATION: VITAL SIGNS: Temperature 97.5, pulse 50s to 60s, blood pressure is 140s to 150s over 70s, O2 97 to 98. NEUROLOGIC: He follows commands, he has no extremity weakness. HEENT: Extraocular movements intact. CARDIOVASCULAR: S1, S2. LUNGS: Clear. GI: Soft. EXTREMITIES: No edema. PSYCH: Fair mood and affect. ASSESSMENT: Dizziness, unclear etiology, unintentional weight loss. Will run some CAT scan of chest and abdomen, chronic kidney insufficiency, COPD, hypoxemia, history of CHF systolic. MRI of the brain is ordered. Medications were ordered. Neurology recommendations ordered. Prognosis guarded. MMODL / IJN: [id number] /
[2022-06-22] MEDS: IPRATROPIUM-ALBUTEROL 3 ML NEB INHALATION SCH ×4 (08:53→18:21)
[2022-06-22] MEDS ORDERED: NON FORMULARY DRUG (Omega-3 Fatty Acids/Fish Oil [Fish Oil 1,000 Mg Softgel] 1 EACH Capsul PO SCH (09:00)
[2022-06-22] MEDS ORDERED: NON FORMULARY DRUG (Glucosamine/Chondr Su A Sod [Osteo Bi-Flex Caplet] 1 EACH Tablet) PO SCH (09:00)
--- NOTE | 2022-06-22 10:33 | XR ---
EXAMINATION TYPE: XR chest 2V DATE OF EXAM: 06/22/2022 10:25 AM COMPARISON: Chest radiographs from 12/01/2021, CT chest 12/01/2021. TECHNIQUE: XR chest 2V Frontal and lateral views of the chest. CLINICAL INDICATION:Male, 81 years old with history of Weight loss unexplained; FINDINGS: Lungs/Pleura: There is no evidence of pleural effusion, focal consolidation, or pneumothorax. Pulmonary vascularity: Unremarkable. Heart/mediastinum: Cardiomediastinal silhouette is unremarkable. Atherosclerotic calcifications are seen in the aorta. Musculoskeletal: No acute osseous pathology. Mild degenerative changes of the thoracic spine. IMPRESSION: No acute cardiopulmonary disease/process.
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
[2022-06-22] MEDS: MAGNESIUM OXIDE 400 MG TAB PO SCH (11:10)
[2022-06-22] MEDS: CALCIUM CARB-VIT D 500 MG-5 MCG TAB PO SCH (11:11)
[2022-06-22] MEDS: carvediloL 12.5 MG TAB PO SCH ×2 (11:11→20:15)
[2022-06-22] MEDS: CHOLECALCIFEROL 25 MCG (1000 IU) TABLET PO SCH (11:11)
[2022-06-22] MEDS: LATANOPROST 0.005% OPHTH DROPS 2.5 ML BTL BOTH EYES SCH (11:11)
[2022-06-22] MEDS: ASPIRIN 81 MG PO SCH (11:11)
[2022-06-22] MEDS: hydrALAZINE HCL 25 MG TAB PO SCH ×2 (11:11→20:15)
[2022-06-22] MEDS: SODIUM CHLORIDE 0.9% 1,000 ML IV SCH ×2 (11:12→22:45)
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
--- NOTE | 2022-06-22 14:24 | P.PN ---
Subjective Progress Note Date: 06/22/22 Patient seen at bedside and he feels he is doing well today. No further episodes of the dizziness or lightheadedness. Denies of any new neurological issues. On seen him he was sitting in the recliner chair having his breakfast early in the morning. Objective - Vital Signs Vital signs: Vital Signs Temp 98.1 F 06/22/22 07:00 Pulse 65 06/22/22 11:36 Resp 16 06/22/22 07:00 BP 140/76 06/22/22 07:00 Pulse Ox 99 06/22/22 07:00 FiO2 Intake & Output 06/21/22 06/22/22 06/22/22 18:59 06:59 18:59 Intake Total 118 500 Balance 118 500 Weight 78.925 kg Intake: Oral 118 500 Other: Voiding Method Toilet # Voids 1 2 1 - Exam GENERAL: The patient is lying in bed and is not in acute distress. NEUROLOGICAL: Higher mental function: The patient is awake, alert, oriented to self, place and time. Patient is following commands. No aphasia and no neglect. Cranial nerves: The pupils are round, equal and reactive to light and accommoda tion. Visual wong are full to confrontation throughout. Extraocular movement is intact no nystagmus is noted. Facial sensation is normal to touch throughout. The facial strength is normal throughout. Hearing is mildly decrease bilaterally to hand rub. Tongue is midline and moved [id number] without any difficulty. No dysarthria is noted. Shoulder shrug is normal bilaterally. Motor: Gait is very cautious gait and had to be by his side but not swaying towards one side or other. The strength is 5 over 5 throughout. Normal tone and bulk. Cerebellum: Normal finger to nose heel to tran bilaterally. Sensation: Sensation is normal to touch throughout. Reflexes (right/left): 1+ throughout. Plantars are mute bilaterally. Some of the workup during his hospital visit consisted of: Orthostatic vitals is negative Creatinine is 1.85 BUN is 42, chlorides 109 otherwise the rest of the comprehensive metabolic panel is within normal limits Folate is 10.4 Vitamin B12 is 1291 [address] is 5.4 CT of the head is reported as no acute intracranial process. Nonspecific white matter changes, Rai secondary due to chronic small vessel ischemic disease. Carotid duplexes reported as active Radice plaque in without significant flow limiting stenosis. - Labs CBC & Chem 7: 06/21/22 11:22 06/21/22 11:27 Labs: Abnormal Lab Results - Last 24 Hours (Table) 06/21/22 Range/Units 11:22 Vitamin B12 1291.0 H (200.0-944.0) pg/mL Assessment and Plan Assessment: This is an 81-year-old gentleman who presents because of dizziness that severe this past Monday as well as a unintentional weight loss for the last 2 month. Dizziness: On examination no focal deficits. Possible peripheral. Rule out central cause but I doubt it. Unintentional weight loss (12lbs) in the last 2 month: Rule out cancer. Chronic kidney insufficiency Plan: MRI of the brain without is ordered by the ED team is pending PT and OT for gait training is consulted. Oncology is consulted for the patient's unintentional weight loss for further investigation. We'll defer the rest of the medical management to primary team The plan was discussed with the patient and his nurse. Time with Patient: Less than 30
--- NOTE | 2022-06-22 14:37 | CA ---
Transthoracic Echo Report Name: Victor M Martinez Age: 81 Gender: M : 1940 Exam Date: 06/22/2022 08:22 Exam Location: [facility] Ht (in): 73 Wt (lb): 174 Ordering Physician: Angel Wu MD Attending/Referring Phys: Divinity Teacher Elise Gonzalez RDCS Procedure CPT: Indications: chf Cardiac Hx: Technical Quality: Good Contrast 1: Total Dose (mL): Contrast 2: Total Dose (mL): MEASUREMENTS (Male / Female) Normal Values 2D ECHO LV Diastolic Diameter PLAX 4.8 cm 4.2 - 5.9 / 3.9 - 5.3 cm LV Systolic Diameter PLAX 3.7 cm IVS Diastolic Thickness 1.3 cm 0.6 - 1.0 / 0.6 - 0.9 cm LVPW Diastolic Thickness 1.3 cm 0.6 - 1.0 / 0.6 - 0.9 cm LV Relative Wall Thickness 0.5 RV Internal Dim ED PLAX 3.3 cm LVOT Diameter 4.0 cm LA Systolic Diameter LX 2.1 cm 3.0 - 4.0 / 2.7 - 3.8 cm LV Diastolic Volume MOD 4C 88.7 cm??? LV Systolic Volume MOD 4C 43.2 cm??? LV Ejection Fraction MOD 4C 51.3 % LV Diastolic Length 4C 8.5 cm LV Systolic Length 4C 6.7 cm LV Diastolic Volume MOD 2C 82.7 cm??? LV Systolic Volume MOD 2C 43.2 cm??? LV Ejection Fraction MOD 2C 47.8 % LV Diastolic Length 2C 8.3 cm LV Systolic Length 2C 7.0 cm M-MODE Aortic Root Diameter MM 3.8 cm MV E Point Septal Separation 1.3 cm AV Cusp Separation MM 1.9 cm DOPPLER AV Peak Velocity 126.0 cm/s AV Peak Gradient 6.4 mmHg Mitral E Point Velocity 58.1 cm/s Mitral A Point Velocity 103.7 cm/s Mitral E to A Ratio 0.6 MV Deceleration Time 563.9 ms MV E' Velocity 5.1 cm/s Mitral E to MV E' Ratio 11.3 TR Peak Velocity 214.5 cm/s TR Peak Gradient 18.4 mmHg Right Ventricular Systolic Press 28.4 mmHg FINDINGS Left Ventricle Left ventricular ejection fraction is estimated at 45-50 %. Left ventricular cavity size normal. Mild concentric left ventricular hypertrophy. Right Ventricle Mild right ventricular dilatation. Right ventricular systolic pressure within normal limits. Right Atrium Normal right atrial size. Left Atrium Normal left atrial size. Mitral Valve Structurally normal mitral valve. Trace to mild mitral regurgitation. Aortic Valve Aortic valve sclerosis. Trace to mild aortic regurgitation Tricuspid Valve Structurally normal tricuspid valve. Mild tricuspid regurgitation. Pulmonic Valve Pulmonic valve not well visualized. Pericardium Normal pericardium. No pericardial effusion. Aorta Mild aortic dilatation at the level of the sinuses of valsalva 38 mm. Descending AO 40 mm CONCLUSIONS Left ventricular ejection fraction 45-50% Mildly dilated right ventricle Mild crease left ventricular wall thickness Trace to mild mitral regurgitation Mild tricuspid regurgitation RVSP 28 Previewed by: Dr. Sunil Dove DO (Electronically Signed) Final Date: 22 Jun 2022 14:36
[2022-06-22 15:57] LABS: Protein, Total 6.5 g/dL (6.2-8.2)
[2022-06-22 16:07] LABS: C Reactive Protein <0.30 mg/dL (0.00-0.80)
[2022-06-22 20:00] VITALS: RESP 17
[2022-06-22] MEDS: SEVELAMER 800 MG TAB PO SCH (20:15)
[2022-06-22] MEDS: ATORVASTATIN 80 MG TAB PO SCH (20:15)
[2022-06-23] MEDS ORDERED: MONTELUKAST 10 MG TAB PO SCH (00:15)
--- NOTE | 2022-06-23 01:53 | PN ---
PROGRESS NOTE SUBJECTIVE: He still has , difficulty with dizziness, moving up and down in the room. He says he wakes up good in the morning. He sleeps well with his oxygen, but in the morning he does not do well when he gets up and moves around. He has had weight loss over the past few months unintentional for which cancer workup is pending. CT abdomen and pelvis is reviewed. CT of the chest is ordered, MRI of the brain is normal. Echocardiogram shows ejection fraction 45% to 50%. Continue current treatment. OBJECTIVE: GENERAL: He is alert and oriented x3. VITAL SIGNS: Reviewed. CARDIOVASCULAR: S1, S2. LUNGS: Clear. Negative orthostatics. Prognosis is guarded. Possible EGD, colonoscopy, cancer workup is going to possibly be ordered. Wait for CT of the chest. Wait to recheck cortisol level in the morning. Prognosis guarded. MMODL / IJN: [id number] /
[2022-06-23] MEDS: carvediloL 12.5 MG TAB PO SCH (06:27)
[2022-06-23] MEDS: IPRATROPIUM-ALBUTEROL 3 ML NEB INHALATION SCH ×4 (07:30→18:11)
[2022-06-23] MEDS: hydrALAZINE HCL 25 MG TAB PO SCH (08:08)
[2022-06-23] MEDS: CALCIUM CARB-VIT D 500 MG-5 MCG TAB PO SCH (08:08)
[2022-06-23] MEDS: CHOLECALCIFEROL 25 MCG (1000 IU) TABLET PO SCH (08:08)
[2022-06-23] MEDS: ASPIRIN 81 MG PO SCH (08:08)
[2022-06-23] MEDS: MAGNESIUM OXIDE 400 MG TAB PO SCH (08:08)
[2022-06-23] MEDS: LATANOPROST 0.005% OPHTH DROPS 2.5 ML BTL BOTH EYES SCH (08:10)
--- NOTE | 2022-06-23 09:27 | CT ---
EXAMINATION TYPE: CT chest wo con DATE OF EXAM: 06/23/2022 COMPARISON: Chest CT December 01, 2021 and older CTs. Chest x-ray from yesterday HISTORY: Dyspnea, Dizziness CT DLP: 499 mGycm. Automated Exposure Control for Dose Reduction was Utilized. TECHNIQUE: CT scan of the thorax is performed without IV contrast. FINDINGS: LUNGS: Mild linear scarring in the lung bases is redemonstrated. No new suspicious focal consolidatio n or groundglass opacity. There is no pleural effusion or pneumothorax seen. The tracheobronchial t ree is patent. MEDIASTINUM: Lack of IV contrast is noted to limit evaluation for mediastinal and especially hilar ad enopathy. There are no definitive greater than 1 cm hilar or mediastinal lymph nodes. No cardiomega ly or pericardial effusion is seen. Coronary artery calcification is redemonstrated. 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 Partial visualization of thin-walled cysts or cystic lesions in the right kidney on current stud y. Dextroconvex scoliosis centered in the mid to lower thoracic spine is redemonstrated. Loss of norm al thoracic curvature on sagittal images is noted. IMPRESSION: Mild linear scarring in the bilateral lower lungs redemonstrated. No suspicious acute pul monary process. No significant change from chest x-ray one day earlier.
--- NOTE | 2022-06-23 12:09 | P.PN ---
Subjective Progress Note Date: 06/23/22 Principal diagnosis: unintentional wt loss In f/u today pt denies any physical c/o on a 10 point ROS Objective - Vital Signs Vital signs: Vital Signs Temp 97.8 F 06/23/22 06:26 Pulse 70 06/23/22 11:47 Resp 17 06/23/22 06:26 BP 127/68 06/23/22 06:26 Pulse Ox 98 06/23/22 07:33 FiO2 Intake & Output 06/22/22 06/23/22 06/23/22 18:59 06:59 18:59 Intake Total 236 180 Balance 236 180 Intake: Oral 236 180 Other: Voiding Method Toilet Toilet # Voids 1 3 - Constitutional General appearance: Present: average body habitus, cooperative, no acute distress - EENT Eyes: Present: anicteric sclerae, EOMI ENT: Present: hearing grossly normal - Respiratory Details: resp even and unlabored at rest - Cardiovascular Details: skin warm and dry to touch - Integumentary Integumentary: Present: normal - Neurologic Neurologic: Present: CNII-XII intact - Musculoskeletal Musculoskeletal: Present: strength equal bilaterally - Psychiatric Psychiatric: Present: A&O x's 3, appropriate affect, intact judgment & insight - Labs CBC & Chem 7: 06/21/22 11:22 06/21/22 11:27 - Imaging and Cardiology CT scan - chest: report reviewed Assessment and Plan (1) Unintentional weight loss Current Visit: Yes Status: Acute Priority: High Code(s): R63.4 - ABNORMAL WEIGHT LOSS SNOMED Code(s): 893251351 Plan: Unintentional weight loss, 12 pounds -Reviewed current imaging, CT AP, MRI of the brain, CT of the brain, no concerning findings. CXR and CT chest do not report any significant abnormal findings. -PSA results 0.4 -No symptoms reported by pt -Recommend age-related cancer screening colonoscopy since last one was 8-9 years ago -History of MGUS. Pt missed his last 2 appointments in the office so, work up ordered, still pending results -F/U appt with Dr. Mckeon in [place] plan attests: I have seen and examined patient, performed H&P, developed impression and plan of care. Discussed with dictator. Agree with dictation, documented as a scribe.
[2022-06-23 13:02] LABS: Free Kappa Lt Chain Qnt, Serum 5.94 mg/dL (0.33-1.94); Free Lambda Lt Chain Qnt, Seru 7.92 mg/dL (0.57-2.63)
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
--- NOTE | 2022-06-23 14:26 | P.PN ---
Subjective Progress Note Date: 06/23/22 The patient seen at bedside and he feels his dizziness/lightheadedness is improving. Denies of any neurological issues. Objective - Vital Signs Vital signs: Vital Signs Temp 97.8 F 06/23/22 06:26 Pulse 70 06/23/22 11:47 Resp 17 06/23/22 06:26 BP 127/68 06/23/22 06:26 Pulse Ox 98 06/23/22 07:33 FiO2 Intake & Output 06/22/22 06/23/22 06/23/22 18:59 06:59 18:59 Intake Total 236 180 Balance 236 180 Intake: Oral 236 180 Other: Voiding Method Toilet Toilet # Voids 1 3 2 - Exam GENERAL: The patient is lying in bed and is not in acute distress. NEUROLOGICAL: Higher mental function: The patient is awake, alert, oriented to self, place and time. Patient is following commands. No aphasia and no neglect. Cranial nerves: The pupils are round, equal and reactive to light and accommodation. Visual wong are full to confrontation throughout. Extraocular movement is intact no nystagmus is noted. Facial sensation is normal to touch throughout. The facial strength is normal throughout. Hearing is mildly decrease bilaterally to hand rub. Tongue is midline and moved [id number] without any difficulty. No dysarthria is noted. Shoulder shrug is normal bilaterally. Motor: Gait is very cautious gait and had to be by his side but not swaying towards one side or other. The strength is 5 over 5 throughout. Normal tone an d bulk. Cerebellum: Normal finger to nose heel to tran bilaterally. Sensation: Sensation is normal to touch throughout. Reflexes (right/left): 1+ throughout. Plantars are mute bilaterally. Some of the workup during his hospital visit consisted of: Orthostatic vitals is negative Creatinine is 1.85 BUN is 42, chlorides 109 otherwise the rest of the comprehensive metabolic panel is within normal limits Folate is 10.4 Vitamin B12 is 12[address] is 5[address] of the head is reported as no acute intracranial process. Nonspecific white matter changes, Rai secondary due to chronic small vessel ischemic disease. Carotid duplexes reported as active Radice plaque in without significant flow limiting stenosis. MR the brain is reported as mild periventricular and deep white matter punctate changes, likely on the basis of microvascular ischemic change. I personally reviewed the MRI and there is no acute subacute ischemia. - Labs CBC & Chem 7: 06/21/22 11:22 06/21/22 11:27 Labs: Abnormal Lab Results - Last 24 Hours (Table) 06/22/22 Range/Units 09:21 Free [facility] LC, Quant 5.94 H (0.33-1.94) mg/dL Free [place] LC, Quant 7.92 H (0.57-2.63) mg/dL Assessment and Plan Assessment: This is an 81-year-old gentleman who presents because of dizziness that severe this past Monday as well as a unintentional weight loss for the last 2 month. Dizziness: On examination no focal deficits. Possible peripheral. MRI of the brain is negative for any acute or subacute ischemia. Unintentional weight loss (12lbs) in the last 2 month: Rule out cancer. Chronic kidney insufficiency Plan: PT and OT for gait training is consulted. Oncology is consulted for the patient's unintentional weight loss for further investigation. We'll defer the rest of the medical management to primary team The plan was discussed with the patient and his nurse. There is no further neurological workup. We'll sign off. Please reconsult if needed. Time with Patient: Less than 30
[2022-06-23 14:29] VITALS: BP 106/61; TEMP 97.5
[2022-06-23 15:03] VITALS: PULSE 66
[2022-06-23] MEDS ORDERED: SYMBICORT 160-4.5 MCG INHALER INHALATION SCH (20:00)
[2022-06-23 21:50] LABS: Albumin 3.7 g/dL (3.80-4.90); Gamma Globulin 0.98 g/dL (0.70-1.50)
[2022-06-24] MEDS ORDERED: LORATADINE 10 MG TAB PO SCH (09:00)
== END 2022-06-23 18:59 | disposition home or self-care (01) ==
LOC: EC 10:48 → 6NMEDSUR 13:24
PROVIDERS: ADMIT Family Medicine; ATTEND Family Medicine
DX: I13.0 Hypertensive heart and chronic kidney disease with heart failure and stage 1 through stage 4 chronic kidney disease, or unspecified chronic kidney disease (principal); I50.22 Chronic systolic (congestive) heart failure; M35.3 Polymyalgia rheumatica; N18.4 Chronic kidney disease, stage 4 (severe); I44.0 Atrioventricular block, first degree; N28.1 Cyst of kidney, acquired; I25.10 Atherosclerotic heart disease of native coronary artery without angina pectoris; G25.81 Restless legs syndrome; E78.5 Hyperlipidemia, unspecified; D47.2 Monoclonal gammopathy; M51.36 Other intervertebral disc degeneration, lumbar region; D61.818 Other pancytopenia; I70.0 Atherosclerosis of aorta; H40.9 Unspecified glaucoma; M41.85 Other forms of scoliosis, thoracolumbar region; I08.3 Combined rheumatic disorders of mitral, aortic and tricuspid valves; Z79.82 Long term (current) use of aspirin; Z79.899 Other long term (current) drug therapy; Z79.51 Long term (current) use of inhaled steroids; Z88.5 Allergy status to narcotic agent; Z63.4 Disappearance and death of family member; Z82.0 Family history of epilepsy and other diseases of the nervous system; Z82.49 Family history of ischemic heart disease and other diseases of the circulatory system; Z80.9 Family history of malignant neoplasm, unspecified; Z86.16 Personal history of COVID-19
CPT/HCPCS: 99285; 36415; 94640 ×5; 94760; 93005; 93306; 97530 ×2; 97162; 97166; 83880; 80053; 85652; 84443; 82533 ×2; 82607; 82746; 83605; 83735; 84484; 85025; 85610; 86140; 81003; 84165; 83883; 83036; 71046; 93880; 70450; 71250; 74176; 70551; G0378 ×3; G0103

== ENCOUNTER 2022-06-27 12:44 | Day surgery (SDC) | payer MEDICARE ==
[2022-06-24 08:50] VITALS: BMI 23.6
[2022-06-27 13:56] VITALS: TEMP 98.1
[2022-06-27] MEDS ORDERED: LACTATED RINGERS 1,000 ML IV ONE ×3 (14:40→14:46)
[2022-06-27] MEDS ORDERED: PROPOFOL 10 MG/ML 20 ML VIAL IV ONE (14:44)
--- NOTE | 2022-06-27 15:23 | P.OP ---
Date of Procedure: 06/27/22 Preoperative Diagnosis: history of colon polyps GERD Postoperative Diagnosis: antral gastritis Mild diverticulosis Procedure(s) Performed: EGD Colonoscopy Anesthesia: MAC Surgeon: Tone Enciso Pathology: other (antrum, esophagus) Condition: stable Disposition: PACU Description of Procedure: the patient's placed on the endoscopy table in the lateral position. He received IV sedation. The gastroscope placed oropharynx passed in the esophagus into the stomach. Scope was then placed into the duodenum. Scope only advanced into the first portion of duodenum. This appeared normal. Scope was brought back the antrum this was minimal inflamed. A biopsies performed. The scope was unretroflexed and remainder the stomach appeared normal. There was a small sliding hiatal hernia. The GE junction was at 38 cm per the distal esophagus appeared normal. The proximal esophagus. Scope withdrawn for patient. Next digital rectal exam was performed. This revealed no urinalysis. The flexible colonoscope then placed patient anus and passedthroughout the colon. The ileocecal valve could not be visualized secondary to tortuosity of the bowel. Several attempts were made to pass the colonoscope was impossible. The scope was then withdrawn. The right colon appeared normal. The transverse colon appeared normal. In the descending; there was mild diverticulosis. Scope was brought back the rectum and this appeared normal. Scope withdrawn for patient.
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
[2022-06-27 15:25] VITALS: RESP 16
[2022-06-27 15:58] VITALS: BP 158/69; PULSE 80
== END 2022-06-27 16:26 | disposition home or self-care (01) ==
LOC: ORWHC2ENDO 12:44
PROVIDERS: ATTEND Surgery
DX: Z12.11 Encounter for screening for malignant neoplasm of colon (principal); K21.9 Gastro-esophageal reflux disease without esophagitis; K29.50 Unspecified chronic gastritis without bleeding; K57.30 Diverticulosis of large intestine without perforation or abscess without bleeding; Z86.010 Personal history of colon polyps; K44.9 Diaphragmatic hernia without obstruction or gangrene; K56.2 Volvulus; I12.9 Hypertensive chronic kidney disease with stage 1 through stage 4 chronic kidney disease, or unspecified chronic kidney disease; N18.4 Chronic kidney disease, stage 4 (severe); M35.3 Polymyalgia rheumatica; Z90.89 Acquired absence of other organs; Z98.890 Other specified postprocedural states; Z82.49 Family history of ischemic heart disease and other diseases of the circulatory system; Z79.82 Long term (current) use of aspirin; Z79.899 Other long term (current) drug therapy
CPT/HCPCS: 88305; 43239; G0121; J2704; 45378

== ENCOUNTER 2022-08-15 08:08 | Inpatient (IN) | payer MEDICARE ==
[2022-08-15 09:40] LABS: Basophils % (A) 0 %; Eosinophils # (A) 0.3 k/uL (0-0.7); Eosinophils % (A) 7 %; HCT 39.1 % (39.0-53.0); HGB 12.7 gm/dL (13.0-17.5); Lymphocytes # (A) 1.2 k/uL (1.0-4.8); Lymphocytes % (A) 25 %; MCHC 32.6 g/dL (31.0-37.0); MCV 98.4 fL (80.0-100.0); Mean Platelet Volume 10.3; Monocytes # (A) 0.2 k/uL (0-1.0); Monocytes % (A) 5 %; Neutrophils # (A) 2.8 k/uL (1.3-7.7); Neutrophils % (A) 62 %; Platelet Count 130 k/uL (150-450); RBC 3.98 m/uL (4.30-5.90); RDW 12.9 % (11.5-15.5); WBC 4.6 k/uL (3.8-10.6)
[2022-08-15 09:54] LABS: Prothrombin Time 10.2 sec (9.0-12.0)
[2022-08-15 09:57] LABS: ALT 47 U/L (4-49); AST 49 U/L (17-59); African American GFR (CKD) 36 (>60 ml/min/1.73 sqM); Albumin 3.7 g/dL (3.5-5.0); Alkaline Phosphatase 114 U/L (38-126); Anion Gap 9 mmol/L; Blood Urea Nitrogen 42 mg/dL (9-20); Calcium 8.9 mg/dL (8.4-10.2); Carbon Dioxide 21 mmol/L (22-30); Chloride 111 mmol/L (98-107); Glucose 106 mg/dL (74-99); Non-African American GFR(CKD) 31 (>60 ml/min/1.73 sqM); Potassium 4.7 mmol/L (3.5-5.1); Sodium 141 mmol/L (137-145); Total Bilirubin 0.7 mg/dL (0.2-1.3); Total Protein 6.6 g/dL (6.3-8.2)
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
[2022-08-15] MEDS ORDERED: NALOXONE 0.4 MG/ML 1 ML VIAL IV PRN (12:05)
[2022-08-15] MEDS: SEVELAMER 800 MG TAB PO SCH (17:53)
[2022-08-15] MEDS: ATORVASTATIN 80 MG TAB PO SCH (21:54)
[2022-08-15] MEDS: MONTELUKAST 10 MG TAB PO SCH (21:54)
[2022-08-15] MEDS: DORZOLAMIDE HCL 2% DROPS 10 ML BTL BOTH EYES SCH (21:54)
[2022-08-16 01:14] LABS: African American GFR (CKD) 35 (>60 ml/min/1.73 sqM); Anion Gap 7 mmol/L; Blood Urea Nitrogen 42 mg/dL (9-20); Calcium 8.5 mg/dL (8.4-10.2); Carbon Dioxide 21 mmol/L (22-30); Chloride 109 mmol/L (98-107); Glucose 105 mg/dL (74-99); Magnesium 2.1 mg/dL (1.6-2.3); Non-African American GFR(CKD) 30 (>60 ml/min/1.73 sqM); Potassium 4.2 mmol/L (3.5-5.1); Sodium 137 mmol/L (137-145)
[2022-08-16 06:39] LABS: African American GFR (CKD) 38 (>60 ml/min/1.73 sqM); Anion Gap 8 mmol/L; Blood Urea Nitrogen 38 mg/dL (9-20); Calcium 8.7 mg/dL (8.4-10.2); Carbon Dioxide 20 mmol/L (22-30); Chloride 111 mmol/L (98-107); Glucose 98 mg/dL (74-99); Non-African American GFR(CKD) 33 (>60 ml/min/1.73 sqM); Potassium 4.5 mmol/L (3.5-5.1); Sodium 139 mmol/L (137-145)
[2022-08-16 06:44] LABS: Basophils % (A) 0 %; Eosinophils # (A) 0.3 k/uL (0-0.7); Eosinophils % (A) 7 %; HCT 37.9 % (39.0-53.0); HGB 12.5 gm/dL (13.0-17.5); Lymphocytes # (A) 1.4 k/uL (1.0-4.8); Lymphocytes % (A) 30 %; MCH 32.2 pg (25.0-35.0); MCHC 32.9 g/dL (31.0-37.0); Mean Platelet Volume 10.3; Monocytes # (A) 0.2 k/uL (0-1.0); Monocytes % (A) 5 %; Neutrophils # (A) 2.7 k/uL (1.3-7.7); Neutrophils % (A) 58 %; Platelet Count 109 k/uL (150-450); RBC 3.87 m/uL (4.30-5.90); WBC 4.7 k/uL (3.8-10.6)
[2022-08-16] MEDS ORDERED: hydrALAZINE HCL 25 MG TAB PO SCH (09:00)
[2022-08-16] MEDS ORDERED: LORATADINE 10 MG TAB PO SCH (09:00)
[2022-08-16] MEDS ORDERED: NON FORMULARY DRUG (Glucosamine/Chondr Su A Sod [Osteo Bi-Flex Caplet] 1 EACH Tablet) PO SCH (09:00)
[2022-08-16] MEDS: DORZOLAMIDE HCL 2% DROPS 10 ML BTL BOTH EYES SCH ×2 (09:17→20:26)
[2022-08-16] MEDS: CYANOCOBALAMIN 500 MCG TAB PO SCH (09:17)
[2022-08-16] MEDS: CALCIUM CARB-VIT D 500 MG-5 MCG TAB PO SCH (09:17)
[2022-08-16] MEDS: CHOLECALCIFEROL 25 MCG (1000 IU) TABLET PO SCH (09:17)
[2022-08-16] MEDS: ASPIRIN 81 MG PO SCH (09:17)
[2022-08-16] MEDS: METOPROLOL SUCCINATE (ER) 25 MG TAB.ER.24H PO SCH (09:17)
[2022-08-16] MEDS: MAGNESIUM OXIDE 400 MG TAB PO SCH (09:17)
[2022-08-16] MEDS: LATANOPROST 0.005% OPHTH DROPS 2.5 ML BTL BOTH EYES SCH (09:43)
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
[2022-08-16] MEDS ORDERED: MELATONIN 3 MG TABLET PO PRN (13:24)
[2022-08-16] MEDS ORDERED: CALCIUM CARBONATE 500 MG CHEWABLE PO PRN (13:24)
[2022-08-16] MEDS ORDERED: ONDANSETRON 4 MG/2 ML VIAL IVP PRN (13:24)
[2022-08-16] MEDS ORDERED: ACETAMINOPHEN TAB 325 MG TAB PO PRN (13:24)
[2022-08-16] MEDS ORDERED: LACTULOSE 20 GM/30 ML CUP PO PRN (13:24)
[2022-08-16] MEDS ORDERED: LORazepam 0.5 MG TAB PO PRN (13:24)
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
[2022-08-16] MEDS: ENOXAPARIN 40 MG/0.4 ML SYRINGE SQ SCH (15:04)
[2022-08-16] MEDS: SODIUM CHLORIDE 0.9% 1,000 ML IV SCH (15:04)
--- NOTE | 2022-08-16 15:37 | CT ---
EXAMINATION TYPE: CT brain grupo wo con DATE OF EXAM: 08/16/2022 COMPARISON: None HISTORY: Sudden onset of dizziness CT DLP: 1683.5 mGycm, Automated exposure control for dose reduction was used. CONTRAST: Patient injected with [address] of the brain is performed utilizing 3 mm thick sections through the posterior fossa and 3 mm thick sections through the remaining calvarium. Study is performed within 24 hours of arrival to the hospital. No abnormal hyperdensity is present to suggest an acute intracranial hemorrhage. No mass lesion is evident. Some physiologic basal ganglion calcification is present. No acute infarcts are evident. Ventricles and sulci are mildly prominent for the patient age. Paranasal sinuses and mastoid air cells within the [id number] are clear. IMPRESSIONS: 1. Mild age-related atrophy. 2. No acute intracranial process radiographically apparent. Follow-up MRI can be performed as clinica lly indicated. CT cervical spine. COMPARISON: None CT of the cervical spine is performed in the axial plane at 2 mm thick sections. Reconstructed image s in the coronal, and sagittal plane are reviewed on the computer. No acute fractures are evident. Vertebral body alignment is normal. Mild diffuse disc space narrowing is present. Vertebral body heights are preserved. No spinal canal stenosis is evident. Moderate bilateral foraminal stenosis from uncovertebral joint hypertrophy is present at C6-7 level. Severe right and moderate left foraminal narrowing at C5-6 from uncovertebral joint hypertrophy is pr esent. Moderate left foraminal stenosis C4-5 is present from uncovertebral joint hypertrophy. Severe right and moderate to severe left foraminal stenosis at C3-4 is present. Some endplate spurring at C3-4 is present with anterior thecal sac contact. No spinal canal stenosis is present. There are some facet changes C2-3 C3-4 on the right bilaterally C4-5. IMPRESSIONS: 1. Chronic degenerative changes with uncovertebral joint hypertrophy contributing to foraminal stenos is discussed above. 2. No acute osseous abnormality.
[2022-08-16] MEDS: SEVELAMER 800 MG TAB PO SCH (16:55)
[2022-08-16] MEDS: IPRATROPIUM-ALBUTEROL 3 ML NEB INHALATION SCH ×2 (18:38→21:15)
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
[2022-08-16] MEDS: ATORVASTATIN 80 MG TAB PO SCH (20:26)
[2022-08-16] MEDS: MONTELUKAST 10 MG TAB PO SCH (20:26)
[2022-08-17] MEDS: IPRATROPIUM-ALBUTEROL 3 ML NEB INHALATION SCH ×5 (08:48→20:19)
[2022-08-17] MEDS: SYMBICORT 160-4.5 MCG INHALER INHALATION PRN (08:54)
[2022-08-17] MEDS: ASPIRIN 81 MG PO SCH (09:00)
[2022-08-17] MEDS: CALCIUM CARB-VIT D 500 MG-5 MCG TAB PO SCH (09:00)
[2022-08-17] MEDS: METOPROLOL SUCCINATE (ER) 25 MG TAB.ER.24H PO SCH (09:00)
[2022-08-17] MEDS: CHOLECALCIFEROL 25 MCG (1000 IU) TABLET PO SCH (09:00)
[2022-08-17] MEDS: CYANOCOBALAMIN 500 MCG TAB PO SCH (09:00)
[2022-08-17] MEDS: ENOXAPARIN 40 MG/0.4 ML SYRINGE SQ SCH (09:00)
[2022-08-17] MEDS: LATANOPROST 0.005% OPHTH DROPS 2.5 ML BTL BOTH EYES SCH (09:01)
[2022-08-17] MEDS: DORZOLAMIDE HCL 2% DROPS 10 ML BTL BOTH EYES SCH ×2 (09:01→19:55)
--- NOTE | 2022-08-17 15:21 | P.PN ---
Subjective Progress Note Date: 08/17/22 Patient is seen at bedside and he states his dizziness as seems to be better today compared to yesterday. Denies of any other neurological issues. Objective - Vital Signs Vital signs: Vital Signs Temp 97.8 F 08/17/22 12:00 Pulse 65 08/17/22 14:00 Resp 17 08/17/22 14:00 BP 154/68 08/17/22 12:00 Pulse Ox 98 08/17/22 12:00 FiO2 Intake & Output 08/16/22 08/17/22 08/17/22 18:59 06:59 18:59 Intake Total 411 14 4503 Output Total 400 975 Balance -42 -965 1556 Intake: IV 10 0.9 10 Intake, IV Titration 300 Amount Sodium Chloride 0.9% 1, 300 000 ml @ 50 mls/hr IV . Q20H CIRILO Rx#:[id number] Oral 358 1256 Output: Urine 400 975 Other: Voiding Method Urinal Urinal Urinal # Voids 1 - Exam GENERAL: The patient is sitting in a chair and is not in acute distress. NEUROLOGICAL: Higher mental function: The patient is awake, alert, oriented to self, place and time. Patient is following commands. No aphasia and no neglect. Cranial nerves: The pupils are round, equal and reactive to light and accommodation. Visual wong are full to confrontation throughout. Extraocular movement is intact no nystagmus is noted. Facial sensation is normal to touch throughout. The facial strength is normal throughout. Hearing is mildly decreased bilaterally to hand rub. Tongue is midline and moved [id number] without any difficulty. No dysarthria is noted. Shoulder shrug is normal bilaterally. Motor: The strength is 5 over 5 throughout. Normal tone and bulk. Cerebellum: Normal finger to nose heel to tran bilaterally. Sensation: Sensation is normal to touch throughout. Reflexes (right/left): 2+ throughout. Plantars are mute bilaterally. SOME OF THE WORK-UP DURING THIS HOSPITAL VISIT CONSISTED OF: CT of the head is reported as mild age-related atrophy. No acute intracranial process radiographically apparent. Follow-up MRI can be performed as correlate clinically indicated. CT cervical spine was reported as chronic degenerative changes with uncovertebral joint hypertrophy contributing to foraminal stenosis. No acute osseous abnormality. - Labs CBC & Chem 7: 08/16/22 05:08/16/22 05:22 Assessment and Plan Assessment: This is an 81-year-old gentleman with unintentional weight loss for the past 4 or 5 month of close to 14 pounds of unknown cause, dizziness since June that got worse in the last 1 week Acute on chronic dizziness: On examination no focal deficit. CT head is negative. Appears peripheral cause but cannot rule out central cause vs ?cancer especially with hx of unintentional weight loss Chronic dizziness patient had MRI of the brain with and without on 2022 which was negative Unintentional weight loss Chronic kidney insufficiency Plan: Orthostatic vitals : is negative. Ordered MRI Brain w/o. For his cervical stenosis, recommend to follow-up as outpatient. Oncology team is the consulted for his unintentional weight loss PT OT are consulted We'll defer the rest of the management to primary team and other specialist Plan discussed with the patient and his nurse Time with Patient: Less than 30
[2022-08-17] MEDS: SODIUM CHLORIDE 0.9% 1,000 ML IV SCH (16:58)
[2022-08-17] MEDS: SEVELAMER 800 MG TAB PO SCH (16:58)
--- NOTE | 2022-08-17 18:31 | XR ---
EXAMINATION TYPE: XR chest 2V DATE OF EXAM: 08/17/2022 6:28 PM COMPARISON: Chest radiographs from 06/22/2022 TECHNIQUE: XR chest 2V Frontal and lateral views of the chest. CLINICAL INDICATION:Male, 81 years old with history of SOB; FINDINGS: Lungs/Pleura: There is no evidence of pleural effusion, focal consolidation, or pneumothorax. Pulmonary vascularity: Unremarkable. Heart/mediastinum: Cardiomediastinal silhouette is unremarkable. Musculoskeletal: No acute osseous pathology. IMPRESSION: No acute cardiopulmonary disease/process.
[2022-08-17] MEDS: MONTELUKAST 10 MG TAB PO SCH (19:55)
[2022-08-17] MEDS: ATORVASTATIN 80 MG TAB PO SCH (19:55)
--- NOTE | 2022-08-17 20:19 | P.PN ---
Progress Note - Text Progress Note Date: 08/17/22 Chief Complaint: Dizzy I'm rounding for Dr. Angel Wu. This is a pleasant 81-year-old patient who follows with Dr. Angel Wu. 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 She now presents with dizzy when he tries to walk. 2 nights ago when he got up to go to the bathroom he had to hold onto the wall.: Was unable to walk straight. Denies double vision. No headache. No change in speech. Denies any ear symptoms. Seems to happen only when he moves. About 2 months ago patient was in the hospital with similar symptoms. CT chest unremarkable. 2-D echocardiogram EF 45-50%.. EKG normal sinus rhythm. Pain MRI: Some chronic changes.-Microvascular ischemic changes. Patient seen by Dr. Miguel Krueger from neurology. Carotid Doppler was unremarkable. Symptoms still persist. August 17: There is a question about BPPV. Patient is given Luis Miguel maneuver instructions yesterday. Did not do it. Spoke to the nurse today to do the same. Patient dizziness is acting better today. Did work with therapy. MRI brain ordered by neurology. Oncology was consulted for weight loss of ordered some blood work. Discussed with the patient. Patient doesn't think he is ready to go home currently. Orthostatic ruled out Active Medications Acetaminophen (Acetaminophen Tab 325 Mg Tab) 650 mg PO Q6HR PRN PRN Reason: Mild Pain or Fever > 100.5 Albuterol/Ipratropium (Ipratropium-Albuterol 3 Ml Neb) 3 ml INHALATION RT-QID [facility] Last Admin: 08/17/22 16:20 Dose: 3 ml Aspirin (Aspirin 81 Mg) 81 mg PO DAILY [facility] Last Admin: 08/17/22 09:00 Dose: 81 mg Atorvastatin Calcium (Atorvastatin 80 Mg Tab) 80 mg PO HS [facility] Last Admin: 08/17/22 19:55 Dose: 80 mg Budesonide/Formoterol Fumarate (Symbicort 160-4.5 Mcg Inhaler) 2 puff I NHALATION RT-BID PRN PRN Reason: Shortness Of Breath Calcium Carbonate (Calcium Carb-Vit D 500 Mg-5 Mcg Tab) 1 each PO DAILY [facility] Last Admin: 08/17/22 09:00 Dose: 1 each Calcium Carbonate/Glycine (Calcium Carbonate 500 Mg Chewable) 1,000 mg PO Q4HR PRN PRN Reason: Dyspepsia Cholecalciferol (Cholecalciferol 25 Mcg (1000 Iu) Tablet) 25 mcg PO DAILY [facility] Last Admin: 08/17/22 09:00 Dose: 25 mcg Cyanocobalamin (Cyanocobalamin 500 Mcg Tab) 1,000 mcg PO DAILY [facility] Last Admin: 08/17/22 09:00 Dose: 1,000 mcg Dorzolamide HCl (Dorzolamide Hcl 2% Drops 10 Ml Btl) 1 drops BOTH EYES BID [facility] Last Admin: 08/17/22 19:55 Dose: 1 drops Enoxaparin Sodium (Enoxaparin 40 Mg/0.4 Ml Syringe) 40 mg SQ DAILY [facility] Last Admin: 08/17/22 09:00 Dose: 40 mg Sodium Chloride (Saline 0.9%) 1,000 mls @ 50 mls/hr IV .Q20H [facility] Last Admin: 08/17/22 16:58 Dose: 50 mls/hr Lactulose (Lactulose 20 Gm/30 Ml Cup) 20 gm PO DAILY PRN PRN Reason: Constipation Latanoprost (Latanoprost 0.005% Ophth Drops 2.5 Ml Btl) 1 drops BOTH EYES DAILY [facility] Last Admin: 08/17/22 09:01 Dose: 1 drops Lorazepam (Lorazepam 0.5 Mg Tab) 0.5 mg PO Q6HR PRN PRN Reason: Anxiety Magnesium Oxide (Magnesium Oxide 400 Mg Tab) 400 mg PO Q48H [facility] Last Admin: 08/16/22 09:17 Dose: 400 mg Melatonin (Melatonin 3 Mg Tablet) 3 mg PO HS PRN PRN Reason: Insomnia Metoprolol Succinate (Metoprolol Succinate (Er) 25 Mg Tab.Er.24h) 25 mg PO DAILY [facility] Last Admin: 08/17/22 09:00 Dose: 25 mg Montelukast Sodium (Montelukast 10 Mg Tab) 10 mg PO HS [facility] Last Admin: 08/17/22 19:55 Dose: 10 mg Naloxone HCl (Naloxone 0.4 Mg/Ml 1 Ml Vial) 0.2 mg IV Q2M PRN PRN Reason: Opioid Reversal Ondansetron HCl (Ondansetron 4 Mg/2 Ml Vial) 4 mg IVP Q8HR PRN PRN Reason: Nausea And Vomiting Ropinirole HCl (Ropinirole Hcl 1 Mg Tab) 2 mg PO HS [facility] Last Admin: 08/17/22 19:55 Dose: 2 mg Sevelamer Carbonate (Sevelamer 800 Mg Tab) 800 mg PO W/SUPPER [facility] Last Admin: 08/17/22 16:58 Dose: 800 mg Social history: Lives with his . Retired. Nonsmoker. Alcohol occasional. Physical examination: VITAL SIGNS: 97.8, 65, 17, 154/68, 98% room air GENERAL: BMI 22.5, sitting up in a chair awake comfortable. EYES: Pupils equal. Conjunctiva normal. HEENT: External appearance of nose and ears normal, oral cavity grossly normal. NECK: JVD not raised; masses not palpable. HEART: First and second heart sounds are normal; no edema. LUNGS: Respiratory rate normal; clear to auscultation. ABDOMEN: Soft, nontender, liver spleen not palpable, no masses palpable. PSYCH: Alert and oriented x3; mood and affect normal. MUSCULOSKELETAL:No Clubbing/cyanosis;muscles-grossly intact. OA NEUROLOGICAL: Cranial nerves grossly intact; no facial asymmetry, power and sensation grossly intact. No nystagmus. No dysdiadochokinesis or. No past pointing. INVESTIGATIONS, reviewed in the clinical context: ESR 14. PSA screen 0.3. White count 4.7 hemoglobin 12.5 platelets 109 potassium 4.5 BUN 38 creatinine 1.84 Assessment and plan: -Episode of worsening dizziness especially with movement. Clinically does not have any cerebellar signs. 2 months ago patient was admitted with neurological workup to be negative. Possible benign paroxysmal positional vertigo. Discussed with nurse today Luis Miguel maneuver. Neurology has ordered MRI -Essential hypertension , Toprol-XL 25 mg a day -Moderate persistent asthma Symbicort -CK D stage IV likely from nephrosclerosis -Secondary hyperparathyroidism Renvela -Polymyalgia rheumatica -Restless leg syndrome Requip 2 mg daily at bedtime -MGUS being followed by Dr. Mckeon from hematology -CAD with stent Aspirin, Lipitor, Toprol-XL Discussed with the patient about the Luis Miguel exercises. MRI ordered by neurology. Keep a close eye on patient's blood pressure.
[2022-08-18] MEDS: SODIUM CHLORIDE 0.9% 1,000 ML IV SCH (05:02)
[2022-08-18 07:52] LABS: Albumin 3.5 d/dL (3.8-4.9); Protein, Total 5.8 d/dL (6.2-8.2)
[2022-08-18] MEDS: MAGNESIUM OXIDE 400 MG TAB PO SCH (08:18)
[2022-08-18] MEDS: CHOLECALCIFEROL 25 MCG (1000 IU) TABLET PO SCH (08:19)
[2022-08-18] MEDS: METOPROLOL SUCCINATE (ER) 25 MG TAB.ER.24H PO SCH (08:19)
[2022-08-18] MEDS: CALCIUM CARB-VIT D 500 MG-5 MCG TAB PO SCH (08:19)
[2022-08-18] MEDS: ASPIRIN 81 MG PO SCH (08:19)
[2022-08-18] MEDS: CYANOCOBALAMIN 500 MCG TAB PO SCH (08:19)
[2022-08-18] MEDS: IPRATROPIUM-ALBUTEROL 3 ML NEB INHALATION SCH ×3 (08:20→15:44)
[2022-08-18] MEDS: DORZOLAMIDE HCL 2% DROPS 10 ML BTL BOTH EYES SCH (08:22)
[2022-08-18] MEDS: LATANOPROST 0.005% OPHTH DROPS 2.5 ML BTL BOTH EYES SCH (08:22)
[2022-08-18] MEDS: ENOXAPARIN 40 MG/0.4 ML SYRINGE SQ SCH (08:23)
[2022-08-18] MEDS: SYMBICORT 160-4.5 MCG INHALER INHALATION PRN (08:26)
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
--- NOTE | 2022-08-18 13:29 | P.PN ---
Progress Note - Text Progress Note Date: 08/18/22 Mr. Martinez was seen and evaluated at bedside sitting in a reclining chair comfortably. As per Mr. Martinez he had no neck pain at this time, and no pain radiating to his upper extremity. He has ongoing chronic lumbar back pain but not significantly concerning her at this time. He denied any weakness in his upper extremities. So no intervention procedure required at this time.
[2022-08-18 14:21] LABS: Free Kappa Lt Chain Qnt, Serum 5.21 mg/dL (0.33-1.94); Free Lambda Lt Chain Qnt, Seru 7.18 mg/dL (0.57-2.63)
--- NOTE | 2022-08-18 14:40 | MR ---
EXAMINATION TYPE: MR brain wo con DATE OF EXAM: 08/18/2022 2:27 PM COMPARISON: 08/16/2022. CLINICAL INDICATION:Male, 81 years old with history of dizziness. TECHNIQUE: Multi planar, multi sequence imaging was performed through the brain including: T1, T2, In version recovery, Diffusion weighted imaging, and gradient echo imaging. No gadolinium was given. FINDINGS: The gaming-white junctions, ventricular system, and cisterns appear unremarkable. Scattered foci of hi gh T2 signal intensity are seen within the periventricular white matter. Midline structures show no a bnormality. Diffusion-weighted imaging shows no evidence of restricted diffusion. The susceptibility weighted images demonstrate small focus within the left posterior frontal lobe. As well as curvilinea r gyriform along the left cerebrum. Bone marrow signal is within normal limits. Paranasal sinuses and mastoid air cells: No significant paranasal sinus disease. Visualized orbits: Bilateral aphakia. IMPRESSION: 1. No evidence of intracranial mass or acute/subacute infarct. 2. Blooming artifact predominantly along the left cerebrum correlate for superficial siderosis, hemos iderin deposition along the leptomeninges. 3. Nonspecific white matter changes, likely secondary to small vessel ischemic disease.
[2022-08-18 15:43] VITALS: BP 127/60; RESP 18; TEMP 97.9
[2022-08-18 15:55] VITALS: PULSE 60
[2022-08-18] MEDS: SEVELAMER 800 MG TAB PO SCH (17:22)
[2022-08-19 07:15] LABS: Gamma Globulin 0.87 d/dL (0.70-1.50)
== END 2022-08-18 19:06 | disposition home or self-care (01) | DRG 92 ==
LOC: EC 08:08 → 3SCARD 12:05
PROVIDERS: ADMIT Family Medicine; ATTEND Family Medicine
DX: R27.0 Ataxia, unspecified (principal); N25.81 Secondary hyperparathyroidism of renal origin; N18.9 Chronic kidney disease, unspecified; D47.2 Monoclonal gammopathy; M47.892 Other spondylosis, cervical region; R63.4 Abnormal weight loss; E11.22 Type 2 diabetes mellitus with diabetic chronic kidney disease; F41.9 Anxiety disorder, unspecified; G25.81 Restless legs syndrome; I25.10 Atherosclerotic heart disease of native coronary artery without angina pectoris; G47.00 Insomnia, unspecified; G89.29 Other chronic pain; I12.9 Hypertensive chronic kidney disease with stage 1 through stage 4 chronic kidney disease, or unspecified chronic kidney disease; J45.40 Moderate persistent asthma, uncomplicated; K59.00 Constipation, unspecified; M47.812 Spondylosis without myelopathy or radiculopathy, cervical region; M35.3 Polymyalgia rheumatica; Z79.51 Long term (current) use of inhaled steroids; Z79.82 Long term (current) use of aspirin; Z79.899 Other long term (current) drug therapy; Z86.16 Personal history of COVID-19; Z95.5 Presence of coronary angioplasty implant and graft; Z87.19 Personal history of other diseases of the digestive system; Z98.42 Cataract extraction status, left eye; Z98.41 Cataract extraction status, right eye; Z96.1 Presence of intraocular lens; Z88.5 Allergy status to narcotic agent
CPT/HCPCS: 36415; 70450; 70551; 71046; 72125; 80048; 80053; 83735; 83883; 84165; 84443; 84484; 85025; 85610; 85652; 93005; 94640; 94760; 99285